=== PATIENT | male | born 1975 | race Caucasian/White ===

== ENCOUNTER 2020-03-13 14:31 | Emergency (ER) | payer MEDICAID, SELFPAY ==
[2020-03-13 14:32] VITALS: PULSE 96; RESP 18; TEMP 37.1; O2SAT 98; BMI 28.7
--- NOTE | 2020-03-13 15:08 | HMH.EDUTC ---
[facility] [place] Disposition Clinical Impression: Upper respiratory infection Qualifiers: URI type: unspecified URI Qualified Code(s): J06.9 - Acute upper respiratory infection, unspecified Disposition: Home, Self-Care Condition on Discharge: Good Instructions: DI for Viral Upper Respiratory Infection-Child Additional Instructions: Drink plenty of fluids. Take tylenol or ibuprofen for pain or fever. Follow up with your regular doctor. GO TO THE ER FOR ANY WORSENING SYMPTOMS Referrals: Provider,Referral, MD [Primary Care Provider] - Forms: Work/School Release Time of Disposition: 15:10 Medical Decision Making - Medical Records Medical records reviewed: No: I reviewed the patient's medical records. - Doug Inquiry Pt receiving controlled substance: No Vital Signs: 03/13/20 14:32 03/13/20 15:15 Temperature 98.7 F 98.7 F Temperature Source Oral Oral Pulse Rate 96 H Pulse Rate [Radial] 96 H Respiratory Rate 18 18 Blood Pressure 138/70 Blood Pressure Source Automatic Cuff Blood Pressure Position Sitting 02 Sat by Pulse Oximetry 98 Oxygen Delivery Method Room Air Room Air Orders (Tests/Meds): ORDERS Category Date Time Status SARS-CoV-2, GISSELLE Stat Lab 03/13/20 14:47 Ordered [facility] [place] HPI - General Stated complaint: needs Covid19 test Time Seen by Provider: 03/13/20 14:40 Mode of Arrival: Ambulatory Source of Information: Patient Limitations: No Limitations Description of Symptoms (Recalled from Triage Doc. by RN): States that his employers wants him tested for COVID-19 in order for him to return to work. HEENT Symptoms (Recalled from RN notes): No Resp Symptoms (Recalled from RN notes): No Skin Symptoms (Recalled from RN notes): No MS Symptoms (Recalled from RN notes): No Functional Status (Recalled from RN notes): wnl - History of Present Illness Provider Complaint: He states the he was sick with a cold last week, so he missed work. Now, he is better. - Related Data Previous Rx's Medication Instructions Recorded clindamycin HCL [Clindamycin HCl 300 mg PO Q6 10 Days #40 cap 06/28/19 300mg Cap] Allergies Allergy/AdvReac Type Severity Reaction Status Date / Time levofloxacin [From LEVAQUIN] Allergy Mild Verified 03/13/19 17:16 Penicillins [PENICILLINS] Allergy Mild Verified 03/13/19 17:16 - Worker's Comp Is this a Worker's Comp case?: No [facility] History - Hepatitis A Screen Drug use history?: No High risk sexual behaviors?: No History of sexually transmitted infection?: No Currently employed?: No Childcare worker?: No Do you have indoor plumbing?: Yes Do you have electricity?: Yes Attestation statement:: This patient has been screened for Hepatitis A risk factors. I have reviewed the patient's past medical history: Yes - Social History Educational Level: Completed High School Smoking Status: Current every day smoker Tobacco Type: cigarettes # Packs/Day (cigarettes): 1 Alcohol Intake: never Occupational Status: employed ROS Obtained: Yes All systems reviewed & no additional complaints - Constitutional Constitutional: Denies chills, Denies fever(s), Reports poor appetite, Denies malaise - Eyes Eyes: Denies eye discharge - ENT Ears, Nose, Mouth, and Throat: Denies dizziness, Denies otalgia, Reports sore throat - Cardiovascular Cardiovascular: Denies chest pain - Respiratory Respiratory: No chest congestion, No cough, No dyspnea, No coughing up blood, No stridor, No wheezing Physical Exam - General General appearance: alert, in no apparent distress - Head Head exam: atraumatic, normocephalic, normal inspection - Eye Eye exam: Present: normal appearance, PERRL, EOMI - ENT ENT exam: Present: normal exam, normal oropharynx, mucous membranes moist, TM's normal bilaterally, normal external ear exam - Neck Neck exam: Present: normal inspection, full ROM, trachea midline. Absent: meningismus, lymphadenopathy - Chest Chest inspect
[2020-03-13 15:15] VITALS: BP 138/70; PULSE 96; RESP 18; TEMP 37.1; O2SAT 98
[2020-03-15 14:38] LABS: Covid-19 Nasal PCR Sendout Lex NOT DETECTED
--- NOTE | 2020-03-15 15:04 | PC.NURSE ---
1504 pt notified of negative covid-19 test result
== END 2020-03-13 15:16 | disposition home or self-care (01) ==
PROVIDERS: Emergency Provider Nurse Practitioner Family
DX: J06.9 Acute upper respiratory infection, unspecified (principal); F17.210 Nicotine dependence, cigarettes, uncomplicated; Z88.0 Allergy status to penicillin
CPT/HCPCS: 99201; U0004

== ENCOUNTER → 2021-11-21 15:20 | Outpatient (CLI) | payer OTHER, SELFPAY | PROVIDERS: Visit Provider Nurse Practitioner | DX: U07.1 COVID-19 (principal) | CPT/HCPCS: C9803; U0003; U0005 ==

== ENCOUNTER → 2021-11-27 11:56 | Outpatient (CLI) | payer OTHER, SELFPAY ==
[2021-11-28 11:16] LABS: Covid-19 Nasal PCR Sendout Lex NOT DETECTED
== END ==
PROVIDERS: Visit Provider Nurse Practitioner
DX: Z20.822 Contact with and (suspected) exposure to COVID-19 (principal)
CPT/HCPCS: C9803; U0004; U0005

== ENCOUNTER 2021-12-17 12:39 | Emergency (ER) | payer OTHER, SELFPAY ==
--- NOTE | 2021-12-17 12:50 | HMH.EDUTC ---
[facility] [place] Clinical Impression: Viral syndrome, Exposure to COVID-19 virus, Bronchitis Disposition: Home, Self-Care Condition on Discharge: Good Instructions: DI for COVID-19 (Suspected or Confirmed ), Preventing the Spread of Coronavirus Discharge Instructions Additional Instructions: Drink plenty of fluids. Take tylenol or ibuprofen for pain or fever. Take the medications as directed. Follow up with your regular doctor. GO TO THE ER FOR ANY WORSENING SYMPTOMS Quarantine until you know the results of your covid-19 test. Notify your school or workplace of your results and follow their instructions regarding return to work/school. Prescriptions: Albuterol Sulfate [Albuterol Sulfate Hfa] 2 puffs IH Q6HP PRN 30 Days #1 each PRN Reason: Shortness Of Breath Transmission Status: Pending to [facility] methylPREDNISolone [Medrol] 4 mg PO DIRECTED 6 Days #21 packet Transmission Status: Pending to [facility] guaiFENesin [Mucinex 600mg tablet] 1 - 2 tab PO BIDP PRN #30 tab PRN Reason: Congestion Transmission Status: Pending to [facility] Azithromycin [Z-Andrew 250mg Tab*] 250 mg PO UD DOSE PK #6 tab Transmission Status: Pending to [facility] Referrals: Provider,Referral, MD [Primary Care Provider] - Forms: Work/School Release Time of Disposition: 14:27 Medical Decision Making - Medical Records Medical records reviewed: No: I reviewed the patient's medical records. - Doug Inquiry Pt receiving controlled substance: No Vital Signs: 12/17/21 12:55 Temperature 97.7 F Temperature Source Temporal Artery Scan Pulse Rate [Left] 112 H Respiratory Rate 18 Blood Pressure [Right Arm] 196/103 H Blood Pressure Mean [Right Arm] 134 02 Sat by Pulse Oximetry 94 L - Lab Data Lab results reviewed: Yes: I reviewed the patient's lab results. Lab Results 12/17/21 14:03: Influenza Type A Ag Negative, Influenza Type B Ag Negative Orders (Tests/Meds): ORDERS Category Date Time Status Rapid Strep Scrn Group A [Strep Scrn Group A (Rapid)] Lab 12/17/21 14:04 Received Stat - Radiology Data #1 Image(s): Chest Image Reviewed: Yes I reviewed the patient's radiology image, Yes I have reviewed radiologist's interpretation [facility] [place]PI - General Stated complaint: cough, soa Time Seen by Provider: 12/17/21 12:50 - History of Present Illness Provider Complaint: He states that for the past 2 days he has felt progressively worse. He is having body aches, chills, low grade fever, diarrhea, a nonproductive cough, chest tightness with deep breathing, scratchy throat. His mother currently has covid-19 and he was around his mother a lot before she started having symptoms. He has not been vaccinated against covid-19. - Related Data Previous Rx's Medication Instructions Recorded clindamycin HCL [Clindamycin HCl 300 mg PO Q6 10 Days #40 cap 06/28/19 300mg Cap] Albuterol Sulfate [Albuterol 2 puffs IH Q6HP PRN 30 Days #1 each 12/17/21 Sulfate Hfa] Azithromycin [Z-Andrew 250mg Tab*] 250 mg PO UD DOSE PK #6 tab 12/17/21 guaiFENesin [Mucinex 600mg tablet] 1 - 2 tab PO BIDP PRN #30 tab 12/17/21 methylPREDNISolone [Medrol] 4 mg PO DIRECTED 6 Days #21 12/17/21 packet Allergies Allergy/AdvReac Type Severity Reaction Status Date / Time levofloxacin [From LEVAQUIN] Allergy Mild Verified 03/13/19 17:16 Penicillins [PENICILLINS] Allergy Mild Verified 03/13/19 17:16 [facility] History - Hepatitis A Screen Attestation statement:: This patient has been screened for Hepatitis A risk factors. I have reviewed the patient's past medical history: Yes - Social History Smoking Status: Current every day smoker Tobacco Type: cigarettes # Packs/Day (cigarettes): 1 Alcohol Intake: never Occupational Status: employed ROS Obtained: Yes All systems reviewed & no additional complaints - Constitutional Constitutional: Reports as per HPI - Eyes Eyes:
[2021-12-17 12:55] VITALS: BP 196/103; PULSE 112; RESP 18; TEMP 36.5; O2SAT 94; BMI 39.1
--- NOTE | 2021-12-17 12:56 | XR_ITS ---
FINAL REPORT CLINICAL HISTORY: sob, cough, wheezing, smoker, hx covid 3 weeks ago COMPARISON: No prior available for comparison. FINDINGS: TWO VIEWS OF THE CHEST The heart is normal in size. The mediastinum is unremarkable. There is mild bibasilar atelectasis or scar. There is no pneumothorax. IMPRESSION: Mild bibasilar atelectasis or scar. Reviewed, Interpreted and Dictated by Tom Mccoy III, MD Transcribed by Edyta Montero Authenticated by Tom Mccoy III, MD on 12/17/2021 02:06:10 PM [facility]
[2021-12-17 14:15] LABS: UTC Influenza A Antigen Negative (Negative)
[2021-12-17 14:16] LABS: UTC Influenza B Antigen Negative (Negative)
[2021-12-17 14:34] VITALS: BP 187/99; PULSE 111; RESP 20; TEMP 36.6
[2021-12-17 14:40] LABS: Strep Scrn Group A (Rapid) Negative (Negative)
== END 2021-12-17 14:35 | disposition home or self-care (01) ==
PROVIDERS: Emergency Provider Nurse Practitioner Family
DX: B34.9 Viral infection, unspecified (principal); Z20.822 Contact with and (suspected) exposure to COVID-19; J40 Bronchitis, not specified as acute or chronic; F17.210 Nicotine dependence, cigarettes, uncomplicated
CPT/HCPCS: 71046; 87430; 87804; 99203; G0463

== ENCOUNTER 2022-03-03 15:36 | Emergency (ER) | payer OTHER, SELFPAY ==
--- NOTE | 2022-03-03 15:54 | XR_ITS ---
FINAL REPORT CLINICAL HISTORY: pain left side of ribs under arm FINDINGS: LEFT RIBS 4 views of the left ribs show a left 6th posterolateral rib fracture There is no pneumothorax or pleural fluid collection. The frontal chest radiograph demonstrates mild left lung base atelectasis or scarring. IMPRESSION: Left 6th posterolateral rib fracture. No pneumothorax. Mild left lung base atelectasis or scarring. Reviewed, Interpreted and Dictated by Tom Mccoy III, MD Transcribed by Jane Arredondo Authenticated by Tom Mccoy III, MD on 03/03/2022 04:47:00 PM [facility]
[2022-03-03 16:16] VITALS: BP 161/94; PULSE 104; RESP 19; TEMP 37.1; O2SAT 96; BMI 39.9
--- NOTE | 2022-03-03 16:30 | HMH.EDUTC ---
[facility] [place] Disposition Clinical Impression: Rib fracture Qualifiers: Encounter type: initial encounter Rib fracture type: single rib Fracture type: closed Laterality: left Qualified Code(s): S22.32XA - Fracture of one rib, left side, initial encounter for closed fracture Disposition: Home, Self-Care Condition on Discharge: Good Instructions: Rib Fracture, DI for Rib Fracture Additional Instructions: Take tylenol or ibuprofen for pain or fever. Take the medications as directed. Follow up with your regular doctor. GO TO THE ER FOR ANY WORSENING SYMPTOMS Use the incentive spirometer 10 times every 2 hours for the next 2 weeks. The cough medication (promethazine dm) will make you drowsy, so don't drive or operate heavy machinery after taking it. Prescriptions: Promethazine/Dextromethorphan [Promethazine-Dm Syrup] 5 ml PO Q6HP PRN #240 ml PRN Reason: Cough Transmission Status: Received by [facility] Benzonatate [Benzonatate 100mg cap] 100 mg PO TIDP PRN #30 cap PRN Reason: Cough Transmission Status: Received by [facility] methylPREDNISolone [Medrol] 4 mg PO DIRECTED 6 Days #21 packet Transmission Status: Received by [facility] Azithromycin [Z-Andrew 250mg Tab*] 250 mg PO UD DOSE PK #6 tab Transmission Status: Received by [facility] Referrals: Provider,Referral, [Primary Care Provider] - Forms: Work/School Release Time of Disposition: 17:24 Medical Decision Making - Medical Records Medical records reviewed: No: I reviewed the patient's medical records. - Doug Inquiry Pt receiving controlled substance: No Vital Signs: 03/03/22 16:16 03/03/22 17:30 Temperature 98.7 F 98.7 F Temperature Source Oral Pulse Rate 104 H Pulse Rate [Left] 104 H Respiratory Rate 19 19 Blood Pressure 161/94 H Blood Pressure [Right Arm] 161/94 H Blood Pressure Mean [Right Arm] 116 02 Sat by Pulse Oximetry 96 - Radiology Data #1 Image(s): Chest Image Reviewed: Yes I reviewed the patient's radiology image, Yes I have reviewed radiologist's interpretation Preliminary Findings: Abnormal Take the ibuprofen for pain. Take the medications as directed. Follow up with your regular doctor. GO TO THE ER FOR ANY WORSENING SYMPTOMS Use the incentive spirometer 10 times every 2 hours while you are awake for the next 2 weeks. The cough medication (promethazine dm) will make you drowsy, so don't drive or operate heavy machinery after taking it. [facility] [place] HPI - General Stated complaint: SOB, pain in rib cage Time Seen by Provider: 03/03/22 16:30 Mode of Arrival: Ambulatory Source of Information: Patient Limitations: No Limitations Description of Symptoms (Recalled from Triage Doc. by RN): pt c/o left sided rib pain. states that he can not remember hitting it or running into anything. 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 HEENT Symptoms (Recalled from RN notes): No Resp Symptoms (Recalled from RN notes): No Skin Symptoms (Recalled from RN notes): No MS Symptoms (Recalled from RN notes): Yes Functional Status (Recalled from RN notes): wnl - History of Present Illness Provider Complaint: He states that around 1 week ago he began having left rib pain with deep breathing and coughing. He denies any fall or known injury. He denies any shortness of breath. - Related Data Previous Rx's Medication Instructions Recorded clindamycin HCL [Clindamycin HCl 300 mg PO Q6 10 Days #40 cap 06/28/19 300mg Cap] Albuterol Sulfate [Albuterol 2 puffs IH Q6HP PRN 30 Days #1 each 12/17/21 Sulfate Hfa] Azithromycin [Z-Andrew 250mg Tab*] 250 mg PO UD DOSE PK #6 tab 12/17/21 guaiFENesin [Mucinex 600mg tablet] 1 - 2 tab PO BIDP PRN #30 tab 12/17/21 methylPREDNISolone [Medrol] 4 mg PO DIRECTED 6 Days #21 12/17/21 packet Azithromycin [Z-Andrew 250mg Tab*] 250 mg PO UD DOSE PK #6 tab 03/03/22 Benzonatate [Benzonatate 100mg 100 mg PO T
[2022-03-03 17:30] VITALS: BP 161/94; PULSE 104; RESP 19; TEMP 37.1; O2SAT 96
== END 2022-03-03 17:31 | disposition home or self-care (01) ==
PROVIDERS: Emergency Provider Nurse Practitioner Family
DX: S22.32XA Fracture of one rib, left side, initial encounter for closed fracture (principal); Z79.51 Long term (current) use of inhaled steroids; Z79.52 Long term (current) use of systemic steroids; Z79.899 Other long term (current) drug therapy; Z88.0 Allergy status to penicillin; Z88.8 Allergy status to other drugs, medicaments and biological substances
CPT/HCPCS: 71101; 99213; G0463

== ENCOUNTER → 2022-09-03 11:28 | Outpatient (CLI) | payer OTHER, SELFPAY ==
--- NOTE | 2022-09-03 11:32 | XR_ITS ---
FINAL REPORT CLINICAL HISTORY: L FOOT PAIN FINDINGS: LEFT FOOT Three views of the left foot demonstrate no acute fracture or dislocation. There is mild hallux valgus deformity. There are mild degenerative changes of the 1st MTP joint. The soft tissues are unremarkable. IMPRESSION: Mild hallux valgus deformity. Mild degenerative changes of the 1st MTP joint. No acute bony abnormality. Reviewed, Interpreted and Dictated by Tom Mccoy III, MD Transcribed by Jane Arredondo Authenticated and [facility]
== END ==
PROVIDERS: PCP Nurse Practitioner Family; Visit Provider Nurse Practitioner Family
DX: M79.672 Pain in left foot (principal)
CPT/HCPCS: 73630

== ENCOUNTER 2023-12-10 21:47 | Outpatient (CLI) | payer OTHER, SELFPAY ==
[2023-12-10 18:47] LABS: Basophils # 0.1 K/mm3 (0-0.2); Basophils % 0.4 % (0.1-2.0); Eosinophils # 0.2 K/mm3 (0.0-0.4); Eosinophils % 1.2 % (0.1-12.0); Hematocrit 54.5 % (42.0-52.0); Hemoglobin 17.8 g/dL (14.1-18.0); Lymphocytes # 4.3 K/mm3 (0.7-4.5); Lymphocytes % 36.1 % (10-50); Mean Corpuscular HGB Conc 32.6 g/dL (31.8-35.4); Mean Corpuscular Hemoglobin 30.4 pg (27.0-31.2); Mean Corpuscular Volume 93.3 fl (80-94); Mean Platelet Volume 9.2 fl (7.4-10.4); Monocytes # 0.6 K/mm3 (0.1-1.0); Monocytes % 5.1 % (1.7-9.3); Neutrophils # 6.9 K/mm3 (1.8-7.8); Neutrophils % 57.2 % (37.0-80.0); Platelet Count 257 K/mm3 (142-424); Red Blood Count 5.84 M/mm3 (4.60-6.20); Red Cell Distribution Width 13.4 % (11.5-17.5)
[2023-12-10 19:31] LABS: Alanine Aminotransferase 31 U/L (12-78); Albumin/Globulin Ratio 1.7 (1.1-1.8); Alkaline Phosphatase 82 U/L (38-126); Anion Gap 14.1 mEq/L (5-15); Aspartate Amino Transferase 32 U/L (17-59); Bilirubin,Total 0.5 mg/dl (0.2-1.3); Blood Urea Nitrogen 5 mg/dl (9-20); Calcium 10.1 mg/dl (8.4-10.2); Carbon Dioxide 29 mmol/L (22.0-30.0); Chloride 101 mmol/L (98-107); Chol/HDL Ratio 5.9 (1-3.5); Cholesterol 266 mg/dl (140-200); Estimated Glomerular Filt Rate 177 ml/min (>60); GFR (African American) 214 ML/MIN (>60); Glucose 107 mg/dl (74-100); HDL Cholesterol 45 mg/dl (40-60); Potassium 4.1 mmoL/L (3.5-5.1); Sodium 140 mmol/L (136-145); Triglycerides 210 mg/dl (30-150); VLDL Cholesterol 42 mg/dL (0-40)
[2023-12-10 19:42] LABS: Direct LDL Cholesterol 164.33 mg/dL (100-129)
[2023-12-10 19:44] LABS: Hemoglobin A1C 7.6 % (4.0-6.0)
[2023-12-10 20:02] LABS: Prostate Specific Ag Screen 0.2 ng/ml (0.0-4.0); Thyroid Stimulating Hormone 1.88 uIU/mL (0.465-4.68)
== END 2023-12-10 23:59 ==
LOC: LAB.DROPOF 21:47
PROVIDERS: PCP Family Medicine; Visit Provider Family Medicine
DX: R53.83 Other fatigue (principal); I10 Essential (primary) hypertension; R51.9 Headache, unspecified; R00.0 Tachycardia, unspecified; E11.9 Type 2 diabetes mellitus without complications; E78.5 Hyperlipidemia, unspecified; Z79.84 Long term (current) use of oral hypoglycemic drugs; Z79.899 Other long term (current) drug therapy; F17.210 Nicotine dependence, cigarettes, uncomplicated; Z12.5 Encounter for screening for malignant neoplasm of prostate
CPT/HCPCS: 80053; 80061; 83036; 84443; 85025; G0103

== ENCOUNTER 2023-12-17 07:49 | Outpatient (CLI) | payer OTHER, SELFPAY | END 2023-12-17 23:59 | LOC: RT 07:50 | PROVIDERS: PCP Family Medicine; Visit Provider Family Medicine | DX: I10 Essential (primary) hypertension (principal); F17.210 Nicotine dependence, cigarettes, uncomplicated | CPT/HCPCS: 93976 ==

== ENCOUNTER 2025-08-13 14:11 | Inpatient (IN) | payer OTHER, SELFPAY ==
--- OUTSIDE RECORDS SUMMARY | 2024-12-21 11:00 | XMS_ITS ---
Author Organization [facility] Address [address] [place], [place] [address] Care Team Providers Care Documentation Nurse Name Role Phone Sofia Sandy Primary Care Provider [phone] SOFIA Sandy APRN Unavailable Unavailable REASON FOR VISIT BP has been high Encounters Encounter Location Date Provider Diagnosis [facility] [address] [place], [place] [address] 12/21/2024 Sofia Sandy Plan Of Treatment No Information Progress Notes * Leroy FERGUSON CDOB: [birth year] (50 yo M)Acc No.[id number]:12/21/2024 Progress Notes Patient: Guille ANDERS Leroy Mckeon Provider: Guille Sandy APRN :1975 A ge:49 Y S ex:Male Date:12/21/2024 Address:[address] [place], [id number] Subjective: * Chief Complaints: * 1 . BP has been high. * Medical History: Objective: * Vitals: Assessment: Plan: * Treatment: * * Electronic signature of Bridgette Sandy APRN on 08/13/2025 at 02:34 PM EDT Sign off status: Pending * Provider: Guille Sandy APRN Date: 0 12/21/2024 Generated for Printi ng/Faxing/eTransmitting on: 1 02:34 PM EDT
--- OUTSIDE RECORDS SUMMARY | 2025-01-02 10:00 | XMS_ITS ---
Author Organization [facility] Address [address] [place], [place] [address] Care Team Providers Care Director Of Professional Services Name Role Phone Sofia Sandy Primary Care Provider [phone] SOFIA Sandy APRN Unavailable Unavailable REASON FOR VISIT BP has been high Encounters Encounter Location Date Provider Diagnosis [facility] [address] [place], [place] [address] 01/02/2025 Sofia Sandy Plan Of Treatment No Information Progress Notes * Leroy FERGUSON CDOB: [birth year] (50 yo M)Acc No.[id number]:01/02/2025 Progress Notes Patient: Guille ANDERS Leroy Mckeon Provider: Guille Sandy APRN :1975 A ge:49 Y S ex:Male Date:01/02/2025 Address:[address] [place], [id number] Subjective: * Chief Complaints: * 1 . BP has been high. * Medical History: Objective: * Vitals: Assessment: Plan: * Treatment: * * Electronic signature of Bridgette Sandy APRN on 08/13/2025 at 02:34 PM EDT Sign off status: Pending * Provider: Guille Sandy APRN Date: 0 01/02/2025 Generated for Printi ng/Faxing/eTransmitting on: 1 02:34 PM EDT
--- OUTSIDE RECORDS SUMMARY | 2025-02-03 17:30 | XMS_ITS ---
Author Organization [facility] Address [address] [place] [address] Care Team Providers Care Instrumentation Fitter Name Role Phone Sofia Sandy Primary Care Provider [phone] SOFIA Sandy APRN Unavailable Unavailable Migration, Provider Unavailable Unavailable Allergies Allergen (clinical drug ingredient) Drug/Non Drug Allergy documented on EMR Reaction Allergy Type Onset Date Status Penicillin Unknown Drug Allergy Active REASON FOR VISIT [facility] Conversion Encounter Medications Medication SIG (Take, Route, Frequency, Duration) Notes Start Date End Date Status Propranolol HCl 40 MG 1 tab(s) orally 2 times a day; Duration: 30 days 04/06/2023 Active amLODIPine Besylate 5 MG 1 tab(s) orally once a day; Duration: 30 days 09/03/2022 Active OZEMPIC 2 MG/3 ML (0.25 MG OR 0.5 MG DOSE) 0.25MG ONCE A WEEK X 4 WEEKS THEN INCREASE TO 0.5MG SUBCUTANEOUSLY ONCE A WEEK; Duration: 28 DAYS *Please review for potential replacement for e-prescription and drug interaction check* 04/22/2023 Active Escitalopram Oxalate 10 MG 1 tab(s) orally once a day; Duration: 30 days 04/22/2023 Active ASPIRIN EC 81 MG 1 TAB(S) ORALLY ONCE A DAY; Duration: 30 DAY(S) *Please review for potential replacement for e-prescription and drug interaction check* 04/06/2023 Active metFORMIN HCl ER 500 MG 1 tab(s) orally twice a day; Duration: 30 day(s) 09/04/2022 Active Encounters Encounter Location Date Provider Diagnosis [facility] [address] [place] [address] 02/03/2025 Provider Migration MAVIS (generalized anxiety disorder) F41.1 and Type 2 diabetes mellitus without complications E11.9 Assessments Encounter Date Diagnosis (ICD Code) Assessment Notes Treatment Notes Treatment Clinical Notes Section Notes 02/03/2025 MAVIS (generalized anxiety disorder) (ICD-10 - F41.1) 02/03/2025 Type 2 diabetes mellitus without complications (ICD-10 - E11.9) Plan Of Treatment Medication Medication Name Sig Start Date Stop Date Notes OZEMPIC 2 MG/3 ML (0.25 MG OR 0.5 MG DOSE) 0.25MG ONCE A WEEK X 4 WEEKS THEN INCREASE TO 0.5MG SUBCUTANEOUSLY ONCE A WEEK; Duration: 28 DAYS 04/22/2023 *Please review for potential replacement for e-prescription and drug interaction check* Escitalopram Oxalate 10 MG 1 tab(s) orally once a day; Duration: 30 days 04/22/2023 Progress Notes * Leroy FERGUSON CDOB: [birth year] (50 yo M)Acc No.[id number]:02/03/2025 Patient: Guille Leroy ANDERS Provider: Javier Logan :1975 A ge:50 Y S ex:Male Date:02/03/2025 Address:[address] [place] [address] [id number] Pcp:Sofia Sandy Subjective: * Chief Complaints: * 1 . [facility] Conversion Encounter. * Medical History: * Medications: T aking metFORMIN HCl ER 500 MG Tablet Extended Release 24 Hour 1 tab(s) orally twice a day , Taking amLODIPine Besylate 5 MG Tablet 1 tab(s) orally once a day , Taking Propranolol HCl 40 MG Tablet 1 tab(s) orally 2 times a day , Taking ASPIRIN EC 81 MG DELAYED RELEASE TABLET 1 TAB(S) ORALLY ONCE A DAY , Notes to Pharmacist: *Please review for potential replacement for e-prescription and drug interaction check* * Allergies: P enicillin: Allergy. Objective: * Vitals: Assessment: * Assessment: 1. G AD (generalized anxiety disorder) - F41.1 2 . T ype 2 diabetes mellitus without complications - E11.9 Plan: * Treatment: 2. T ype 2 diabetes mellitus without complications Start OZEMPIC SOLUTION, 2 MG/3 ML (0.25 MG OR 0.5 MG DOSE), 0.25MG ONCE A WEEK X 4 WEEKS THEN INCREASE TO 0.5MG, SUBCUTANEOUSLY, ONCE A WEEK, 28 DAYS, 4, Refills 0, Notes to Pharmacist: *Please review for potential replacement for e-prescription and drug interaction check*. * * Electronic signature of Fredi caldwell Migration on 08/13/2025 at 02:34 PM EDT Sign off status: Pending * Provider: Javier buenrostro Migration Date: 0 02/03/2025 Generated for Dickson barillas/Jayme/Bay on: 1 02:34 PM EDT
[2025-08-13] VITALS (14 sets, daily range): BP systolic 93–143; BP diastolic 62–82; PULSE 91–132; RESP 10–22; TEMP 36.6–36.9; O2SAT 93–98; BMI 37.5; BMI 35.6
--- NOTE | 2025-08-13 14:25 | ECG_ITS ---
APPROVED REPORT Exam: Resting ECG HR:133 bpm ECG Measurements Heart Rate 133 AXES PA 117 P 43 QRSd 82 QRS 20 QT 311 T 35 QTc 389 Conclusion SINUS TACHYCARDIA WITH SHORT PA INTERVAL LOW QRS VOLTAGE IN PRECORDIAL LEADS [QRS DEFLECTION < 1.0 mV IN CHEST LEADS] ABNORMAL RHYTHM ECG UNCONFIRMED REPORT Electronically signed by : Eren Keenan, 08/13/2025 15:47:21
--- NOTE | 2025-08-13 14:34 | HMH.EDGENADL ---
Discharge Plan Disposition Patient Disposition: Admitted Condition: Critical Prescriptions Prescriptions: No Action buprenorphine-naloxone 8-2 mg tablet, sublingual sublingual aspirin [Adult Low Dose Aspirin] 81 mg tablet,delayed release (DR/EC) 81 mg PO DAILY losartan-hydrochlorothiazide 50-12.5 mg tablet 1 tab PO DAILY Qty: 30 2RF atorvastatin [Lipitor] 20 mg tablet 20 mg PO DAILY Qty: 90 2RF Ozempic 0.25 mg or 0.5 mg (2 mg/3 mL) pen injector 0.25 mg SQ WEEKLY Qty: 3 0RF Rx Instructions: for 4 weeks metformin 500 mg tablet See Rx Instructions .ROUTE .COMPLEX Qty: 180 3RF Dose Instruction: TAKE ONE TABLET BY MOUTH 2 TIMES A DAY Rx Instructions: TAKE ONE TABLET BY MOUTH 2 TIMES A DAY alprazolam 1 mg tablet 1 mg PO BID PRN (Reason: anxiety) Qty: 60 0RF Referrals Follow up/Referrals: Addison Thomas DO [Primary Care Provider, Family Practice] - See instructions Clinical Impressions Clinical Impression: Hyperosmolar hyperglycemic state (HHS), Pseudohyponatremia, Weakness, Dehydration Print Language Print Language: Kosovan Discharge ED Provider: Eren Keenan Adult HPI General Chief complaint: Weakness Stated complaint: cant eat, unsteady, blurry vision, slurred speech Time Seen by Provider: 08/13/25 14:34 Mode of Arrival: Ambulatory Source of Information: Patient Description of Symptoms (Recalled from ER Triage Doc. by RN): patient presents to the ED for generalized weakness that started 3 days ago and has progressively gotten worse along with slurred speech and blurry vision. patient presents in a wheelchair due to weakness and he states this is not his baseline. NIH 0 in triage. patient also endorses not eating in the last 3 days as well. [place] is diabetic and takes aspirin daily. History of Present Illness HPI narrative: Patient is a 50-year-old male with history of diabetes, on metformin, hypertension hyperlipidemia, opiate use disorder in remission. He is presenting today for generalized weakness as well as not able to tolerate oral intake. He reports he has been nauseous for the last 3 days and has not hardly had anything to eat or drink. He reports some headaches as well as generalized weakness. He has dropped items both in his right and left hand and has been not able to stand for long periods of time. He denies any headaches, chest pain, shortness of breath, abdominal pain, diarrhea. Denies any falls or trauma. He has never been on insulin. Denies any fevers or sick contacts. Denies any cough congestion runny nose. Related Data Home Medications ?Medication ?Instructions ?Recorded ?Confirmed buprenorphine 8 mg-naloxone 2 mg tab sublingual 12/10/23 08/01/25 sublingual tablet aspirin 81 mg tablet,delayed 81 mg PO DAILY 12/11/23 08/01/25 release (Adult Low Dose Aspirin) Previous Rx's ?Medication ?Instructions ?Recorded atorvastatin 20 mg tablet (Lipitor) 20 mg PO DAILY #90 tabs 06/28/25 losartan 50 mg-hydrochlorothiazide 1 tab PO DAILY #30 tabs 06/28/25 12.5 mg tablet semaglutide 0.25 mg or 0.5 mg (2 0.25 mg (0.368 mL) SQ WEEKLY #3 mL 06/28/25 mg/3 mL) subcutaneous pen injector (Ozempic) metformin 500 mg tablet See Rx Instructions .Route 07/24/25 .COMPLEX #180 tabs alprazolam 1 mg tablet 1 mg PO BID PRN anxiety #60 tabs 08/07/25 Allergies Allergy/AdvReac Type Severity Reaction Status Date / Time Penicillins (PENICILLINS) Allergy Mild Unknown Verified 08/01/25 10:54 allergy reaction levofloxacin (From LEVAQUIN) Allergy Unknown Unknown Verified 08/01/25 10:54 allergy reaction [facility] Disclaimer: The information contained in this section may have been updated after the patient was seen, as this information can be updated by other users. Medical History Diabetes Rib fracture Bronchitis Exposure to COVID-19 virus Viral syndrome Upper respiratory infection Dental abscess Periapical abscess Other acute sinusitis Surgical History Hx of plastic surgery left arm History of appendectomy ruptured and got gangrene younger No pertinent past surgical history Family History Family/Other No significant family history Social History Smoking Status: Current every day smoker tobacco type: cigarettes packs per day: 1 second hand exposure: Yes alcohol intake: current alcohol intake frequency: holidays/special occasions only substance use type: former substance user and painkillers current occupational status: unemployed Travel in the last 8 weeks?: None Have you lived/traveled outside US in past 30 days?: No Contact w/someone who lives/traveled outside US past 30 days?: No Exposure to someone with infectious disease in past 14 days?: No Do you have a fever (greater than 100.4 F or 38 C)?: No Have you tested positive for COVID-19?: No Exposed to someone with COVID-19 in past 14 days?: No Do you have a sore throat?: No Do you have a cough?: No Do you have any weakness?: No Do you have any diarrhea?: No Are you experiencing any unusual bleeding?: No Do you have any muscle aches/pain?: No Do you have any abdominal pain?: No Are you experiencing loss of taste or smell?: No Other Medical History Have you received the Flu Vaccine for this season: No Have you received the Pneumonia Vaccine: No ROS Obtained: Yes All systems reviewed & no additional complaints except as documented Physical Exam General General appearance: alert and in no apparent distress Head Head exam: atraumatic and normocephalic Eye Eye exam: Present PERRL and EOMI ENT ENT exam: Present mucous membranes dry Neck Neck exam: Present full ROM and trachea midline Chest Chest inspection: Present symmetric chest wall rise Respiratory Respiratory exam: Present normal lung sounds bilaterally; Absent stridor Cardiovascular Cardiovascular exam: Present normal rhythm and tachycardia Abdominal Exam Abdominal exam: Present soft; Absent distention or tenderness Extremities Exam Extremities exam: Present full ROM Neurological Exam Neurological exam: Present alert, oriented X3 and CN II-XII intact; Absent motor sensory deficit Psychiatric Psychiatric exam: Present normal mood Skin Skin exam: Present warm and dry Medical Decision Making Medical Records Screening: Per USPSTF and CDC recommendations, given the prevalence of disease in our region, it is our hospital?s policy to screen for HIV and viral Hepatitis for all patients aged 18 and over and those with ongoing risk factors. Doug Inquiry Pt receiving controlled substance: No Vital Signs: 08/13/25 14:19 08/13/25 14:46 Temperature 98.5 F Temperature Source Oral Pulse Rate 117 H Pulse Rate [Right Radial] 132 H Respiratory Rate 18 15 Blood Pressure 117/71 Blood Pressure [Right Arm] 143/82 H Blood Pressure Mean [Right Arm] 102 Blood Pressure Source [Right Arm] Automatic Cuff Blood Pressure Position [Right Arm] Sitting 02 Sat by Pulse Oximetry 96 94 L Oxygen Delivery Method Room Air Lab Data Lab Results 08/13/25 14:36: WBC 16.9 H, RBC 5.09, Hgb 14.9, Hct 44.5, MCV 87.4, MCH 29.3, MCHC 33.5, RDW 13.0, Plt Count 292, MPV 12.1 H, Neut % (Auto) 68.0, Lymph % (Auto) 25.8, [place] % (Auto) 5.0, Eos % (Auto) 0.4, Baso % (Auto) 0.4, Neut # (Auto) 11.5 H, Lymph # (Auto) 4.4, [place] # (Auto) 0.9, Eos # (Auto) 0.1, Baso # (Auto) 0.1, VBG pH 7.30 L, VBG pCO2 31.1 L, VBG pO2 89.6 H, VBG HCO3 15.0 L, VBG Total CO2 15.9 L, VBG O2 Saturation 97.0 H, VBG Base Excess -11.4 L, VBG Lactic Acid 3.6 H, Sodium 129 L, Potassium 4.4, Chloride 82 L, Carbon Dioxide 15 L, Anion Gap 36.4 H, BUN 31 H, Creatinine 1.20, Estimated Creat Clear 112, Estimated GFR 64, Est GFR ( Amer) 77, Glucose 829 H*, Calcium 9.1, Phosphorus 6.6 H, Magnesium 2.8 H, Total Bilirubin 0.7, AST 25, ALT 25, Alkaline Phosphatase 145 H, Total Protein 8.7 H, Albumin 4.9, Globulin 3.8 H, Albumin/Globulin Ratio 1.3, Lipase 307 H 08/13/25 14:36 08/13/25 14:36 Orders (Tests/Meds): ED MEDICATIONS Generic Name Dose Route Start Last Admin Trade Name Freq PRN Reason Stop Dose Admin Dextrose 50 ml 08/13/25 15:08 Dextrose 50% 50ml Syringe (Crash Cart) IVP 09/12/25 15:07 NEEDED PRN Per Dka Protocol for FSBS </= 50 Sodium Chloride 1,000 mls @ 999 mls/hr 08/13/25 14:35 08/13/25 14:49 Sod Chlor 0.9% 1000ml Bag IV 08/13/25 15:35 999 mls/hr .Q1H1M ONE Administration Sodium Chloride 1,000 mls @ 999 mls/hr 08/13/25 14:57 08/13/25 15:12 Sod Chlor 0.9% 1000ml Bag IV 08/13/25 15:57 999 mls/hr .Q1H1M ONE Administration Sodium Chloride 1,000 mls @ 150 mls/hr 08/13/25 17:15 Sod Chlor 0.9% 1000ml Bag IV 09/12/25 17:14 .Q6H40M GABY Insulin Human Regular 100 unit 101 mls @ 10.1 mls/hr 08/13/25 15:15 / Sodium Chloride IV 09/12/25 15:14 .Q10H GABY Protocol 10 UNIT/HR Discontinued Medications Generic Name Dose Route Start Last Admin Trade Name Freq PRN Reason Stop Dose Admin Ondansetron HCl 4 mg 08/13/25 14:35 08/13/25 14:49 Ondansetron 4mg/2ml Vial IV 08/13/25 14:36 4 mg ONCE ONE Administration ORDERS Category Date Time Status CT head/brain wo con Stat Cat Scan 08/13/25 14:56 Taken Acetone, Serum (Rapid) Stat Lab 08/13/25 14:36 Results Basic Metabolic Panel Q4 Lab 08/13/25 15:15 Ordered Basic Metabolic Panel Q4 Lab 08/13/25 19:15 Ordered Basic Metabolic Panel Q4 Lab 08/13/25 23:15 Ordered Basic Metabolic Panel Q4H Lab 08/14/25 03:15 Ordered Basic Metabolic Panel Q4H Lab 08/14/25 07:15 Ordered Basic Metabolic Panel Q4H Lab 08/14/25 11:15 Ordered CBC w/Auto Diff [Complete Blood Count Auto Diff] Stat Lab 08/13/25 14:36 Completed CMP [Comprehensive Metabolic Panel] Stat Lab 08/13/25 14:36 Results Drug Screen,Urine Stat Lab 08/13/25 14:35 Ordered Hemoglobin A1C Stat Lab 08/13/25 14:36 Received Lactic Acid Stat Lab 08/13/25 14:35 Ordered Lipase Stat Lab 08/13/25 14:36 Results MAG [Magnesium] Stat Lab 08/13/25 14:36 Results Magnesium Q4H Lab 08/13/25 15:15 Ordered Magnesium Q4H Lab 08/13/25 19:15 Ordered Magnesium Q4H Lab 08/13/25 23:15 Ordered Magnesium Q4H Lab 08/14/25 03:15 Ordered Magnesium Q4H Lab 08/14/25 07:15 Ordered Magnesium Q4H Lab 08/14/25 11:15 Ordered PHOS [Phosphorous] Stat Lab 08/13/25 14:36 Results Phosphorous Q4H Lab 08/13/25 15:15 Ordered Phosphorous Q4H Lab 08/13/25 19:15 Ordered Phosphorous Q4H Lab 08/13/25 23:15 Ordered Phosphorous Q4H Lab 08/14/25 03:15 Ordered Phosphorous Q4H Lab 08/14/25 07:15 Ordered Phosphorous Q4H Lab 08/14/25 11:15 Ordered Rapid PCR Covid and Flu A/B Stat Lab 08/13/25 14:55 Received UA [Urinalysis and Microscopic] Stat Lab 08/13/25 14:35 Ordered Blood Culture Stat Micro 08/13/25 15:26 Ordered Venous Blood Gas Stat RT 08/13/25 14:36 Completed ECG Data Tracing #1: Independently diverted by myself demonstrate sinus tachycardia with a short NV interval at 117, but likely secondary to his tachycardia, not acutely actionable. No obvious acute ischemic ST change. Medical Decision Narrative: Patient is a 50-year-old male with history of diabetes, likely poorly controlled. Presenting today for generalized weakness, nausea, unable to tolerate oral intake for 3 days. On arrival, he is critically ill. He is tachycardic to 133, but otherwise stable. On exam, is extremely dry, with greater than 3-second capillary refill. Full pulses in all extremities. No lower extremity edema. Heart is tachycardic rate with regular rhythm lung sounds are clear. No respiratory distress noted. Oropharynx is clear, but very dry mucous membranes. Pupils are equal and reactive, cranial nerves grossly intact, gross motor and sensory in upper and lower extremities are intact. Good ultrasonic solderer strength bilaterally. Regarding his weakness, I find it likely secondary to his metabolic disturbances HHS versus DKA, nevertheless, will proceed with cross-sectional to the head rule out ICH or cerebral edema. Patient likely has DKA versus HHS given significant hyperglycemia greater than detectable on both VBG and glucometers here. Will send with broad hematologic lab workup. VBG returned acidotic 7.3. Glucose is 829. Likely pseudo hyponatremia with blood glucose of 129. Anion gap of 36 and bicarb of 15. will continue aggressive crystalloid resuscitation and begin insulin drip per protocol. [place] reasonable to consult hospitalist. Had an interactive discussion with Dr. Adam who ultimately agrees to admit the patient to the service for further workup definitive management. We transferred in mildly tachycardic, but otherwise hemodynamically stable condition. Critical Care Critical Care Time Critical Care Time: Yes Attestation: On 08/13/25, the high probability of a clinically significant, sudden or life threatening deterioration of the following system(s) required my full and direct attention, intervention and personal management. The time I documented below is in addition to time spent performing reported procedures but includes the following listed in this critical care notation. Total Time Total Critical Care Time: 34
--- OUTSIDE RECORDS SUMMARY | 2025-08-13 14:35 | XMS_ITS | Patient Health Record ---
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 Name Role Phone Sofia Sandy Primary Care Provider SOFIA Sandy APRN Unavailable Unavailable Migration, Provider Unavailable Unavailable Allergies Allergen (clinical drug ingredient) Drug/Non Drug Allergy documented on EMR Reaction Allergy Type Onset Date Status Penicillin Unknown Drug Allergy Active Reason For Referral No Information Medications Medication SIG (Take, Route, Frequency, Duration) Notes Start Date End Date Status metFORMIN HCl ER 500 MG 1 tab(s) orally twice a day; Duration: 30 day(s) 09/04/2022 Active Propranolol HCl 40 MG 1 tab(s) orally [...] e-prescription and drug interaction check* 04/06/2023 Active Social History Tobacco Use: Social History Observation Description Date Details (start date - stop date) Current Smoker NA - NA Smoking: Question Answer Notes Are you a: current smoker How often do you smoke cigarettes? every day How many cigarettes a day do you smoke? 21-30 Problems Problem Type SNOMED Code ICD Code Onset Dates Problem Status W/U Status Risk Notes Problem Type II diabetes mellitus without complication (975060361) Type 2 diabetes mellitus without complications (E11.9) Active confirmed Problem Essential hypertension (80020876) Essential hypertension (I10) Active confirmed Problem Generalized anxiety disorder (95515051) MAVIS (generalized anxiety disorder) (F41.1) Active confirmed Problem Body mass index 40+ - severely obese (791556003) Body mass index (BMI) of 40.1 to 44.9 in adult (Z68.41) Active confirmed Problem Tobacco use (447185915) Tobacco use disorder (F17.200) Active confirmed Encounters Encounter Location Date Provider Diagnosis [facility] [address] [place] [address] 02/03/2025 Provider Migration MAVIS (generalized anxiety disorder) F41.1 and Type 2 diabetes mellitus without complications E11.9 [facility] [address] [place] [address] 01/02/2025 Sofia Sandy Assessments Encounter Date Diagnosis (ICD Code) Assessment Notes Treatment Notes Treatment Clinical Notes Section Notes 02/03/2025 MAVIS (generalized anxiety disorder) (ICD-10 - F41.1) 02/03/2025 Type 2 diabetes mellitus without complications (ICD-10 - E11.9) Plan Of Treatment Pending Test Test Name Order Date M-Comprehensive Metabolic Panel 04/22/20 23 M-Hemoglobin A1C 04/22/2023 M-Lipid Panel 04/22/2023 M-PSA Total+% Free 04/22/2023 Insurance Providers Payer Name Payer Address Payer Phone Subscriber Number Group Number Insured Name Patient Relationship to Insured Coverage Start Date Coverage End Date [employer] [facility] [address] [address] [place] [address] [id number] Leroy Ferguson Self - patient is the insured Medical (General) History Medical History History ICD Code Gout Surgical History Surgery Date(Month/Year) appendectomy Left wrist- large laceration Hospitalization History Reason Date(Month/Year) Surgeries as above
--- NOTE | 2025-08-13 14:37 | PC.NURSE ---
I notified Debi that a green top was sent for a VBG
[2025-08-13 14:44] LABS: VBG HCO3 15.0 mmol/L (23-30); VBG PCO2 31.1 mmol/L (35-51); VBG PH 7.30 mmol/L (7.31-7.41); VBG PO2 89.6 mmol/L (28-40)
[2025-08-13 14:47] LABS: Lactate Venous 3.6 mmol/L (0.4-2.0)
[2025-08-13] MEDS: ONDANSETRON 4MG/2ML VIAL 4 MG IV (14:49)
[2025-08-13] MEDS: 0.9 % SODIUM CHLORIDE 1000ML 1,000 ML 999 ML IV ×2 (14:49→15:12)
--- NOTE | 2025-08-13 14:56 | CT_ITS ---
FINAL REPORT TECHNIQUE: Thin section axial images were obtained from skull base to vertex without contrast. Coronal and sagittal reconstruction images were obtained from the axial data. Exam was performed using dose reduction techniques such as automated exposure control, adjustment of the mA and kV according to patient size, and use of iterative reconstruction technique. CLINICAL HISTORY: DKA, weakness, r/o cerebral edema COMPARISON: None FINDINGS: There is no mass effect or midline shift. There is an old left basal ganglia infarct present. Otherwise, no acute intracranial abnormality is noted. There is no hydrocephalus. There is no intracranial hemorrhage. The posterior fossa is without acute abnormality. The basilar cisterns are preserved. The soft tissues are without acute abnormality. No acute osseous abnormality is identified. IMPRESSION: No acute intracranial hemorrhage or large cortical infarct is identified. Remote left basal ganglia infarct. Reviewed, Interpreted and Dictated by Edie Renner MD Transcribed by Marlyn Steward Authenticated and [facility]
[2025-08-13 15:00] LABS: Hematocrit 44.5 % (42.0-52.0); Hemoglobin 14.9 g/dL (14.1-18.0); Immature Granulocytes % 0.4 %; Mean Corpuscular HGB Conc 33.5 g/dL (31.8-35.4); Mean Corpuscular Hemoglobin 29.3 pg (27.0-31.2); Mean Corpuscular Volume 87.4 fl (80-94); Nucleated Red Blood Cells % 0 %; Platelet Count 292 K/mm3 (142-424); Red Blood Count 5.09 M/mm3 (4.60-6.20); Red Cell Distribution Width-SD 41.6 fL; White Blood Count 16.9 K/mm3 (4.8-10.8)
[2025-08-13 15:01] LABS: Influenza A, PCR Not Detected (NotDetected); Influenza B, PCR Not Detected (NotDetected)
[2025-08-13 15:05] LABS: Albumin Level 4.9 g/dl (3.5-5.0); Chloride 82 mmol/L (98-107); Potassium 4.4 mmoL/L (3.5-5.1); Sodium 129 mmol/L (136-145)
[2025-08-13 15:07] LABS: Alanine Aminotransferase 25 U/L (12-78); Aspartate Amino Transferase 25 U/L (17-59); Blood Urea Nitrogen 31 mg/dl (9-20); Creatinine Clearance Estimated 112 mL/min (50-200); Creatinine,Serum 1.20 mg/dl (0.66-1.25); Estimated Glomerular Filt Rate 64 ml/min (>60); GFR (African American) 77 ML/MIN (>60)
[2025-08-13 15:08] LABS: Albumin/Globulin Ratio 1.3 (1.1-1.8); Alkaline Phosphatase 145 U/L (38-126); Anion Gap 36.4 mEq/L (5-15); Bilirubin,Total 0.7 mg/dl (0.2-1.3); Calcium 9.1 mg/dl (8.4-10.2); Carbon Dioxide 15 mmol/L (22.0-30.0); Globulin 3.8 g/dL (1.3-3.2); Lipase 307 U/L (23-300); Magnesium 2.8 mg/dl (1.6-2.3); Phosphorous 6.6 mg/dl (2.5-4.5); Total Protein,Serum 8.7 g/dl (6.3-8.2)
[2025-08-13 15:21] LABS: Glucose 829 mg/dl (74-100)
[2025-08-13] MEDS: INSULIN REGULAR, HUMAN 100 UNIT in 0.9 % SODIUM CHLORIDE 100 ML 10.1 UNIT IV (15:30)
--- NOTE | 2025-08-13 15:41 | XR_ITS ---
FINAL REPORT TECHNIQUE: Single view chest CLINICAL HISTORY: r/o infxn COMPARISON: 03/03/2022 FINDINGS: A single view of the chest was obtained. The heart and mediastinum are within normal limits. The lungs are clear. There is no pneumothorax. IMPRESSION: No acute cardiopulmonary process. Reviewed, Interpreted and Dictated by Edie Renner MD Transcribed by Nilda Morales Authenticated and [facility]
[2025-08-13 16:11] LABS: Microscopic, Urine URINE MICROSCOPIC (MICROSCOPIC)
[2025-08-13 16:17] LABS: Color,Urine YELLOW (Yellow); Glucose,Urine (UA) 3+ (Negative); Ketones,Urine 3+ (Negative); Leukocyte Esterase,Urine Negative (Negative); PH,Urine 5.5 (5.0-8.5); Protein,Urine Negative (Negative); Specific Gravity, Urine 1.015 (1.005-1.030); Urobilinogen,Urine 0.2 EU/dl (0.2)
[2025-08-13 16:17] LABS: Acetone, Serum (Rapid) Moderate (None Detect)
[2025-08-13] MEDS: CEFEPIME HCL 2 GM in 0.9 % SODIUM CHLORIDE 100 ML IV (16:21)
--- NOTE | 2025-08-13 16:26 | EXP.HP ---
History of Present Illness *Admission Date: 08/13/25 *Reason for visit:: weakness in hands *History of present illness: Mr. Ferguson is a 50-year-old male with history of diabetes managed with oral medications. Presented with several days of generalized weakness. States he has been progressively getting worse with his hands and speech. Dropping things and having a difficult time holding on. Presented weakness in a wheelchair. Alert and oriented to person. States he has been having increased urinary frequency, nocturia, polydipsia. Initial workup in the ER found to have a glucose of 829 and anion gap of 36. Presentation most consistent with DKA. Denies falls, trauma, syncope, abdominal pain, nausea or vomiting, chest pain or shortness of breath. No known sick contacts. Medicine consulted for admission and further management of DKA. On evaluation after arriving to the ICU, states he is feeling little bit better. Still quite weak however. Alert and oriented x 3. Grossly ill-appearing. Daughter at bedside. [facility] Disclaimer: The information contained in this section may have been updated after the patient was seen, as this information can be updated by other users. Medical History Diabetes Rib fracture Bronchitis Exposure to COVID-19 virus Viral syndrome Upper respiratory infection Dental abscess Periapical abscess Other acute sinusitis Surgical History Hx of plastic surgery History of appendectomy No pertinent past surgical history Family History Family/Other No significant family history Social History Smoking Status: Current every day smoker tobacco type: cigarettes packs per day: 1 second hand exposure: Yes alcohol intake: current alcohol intake frequency: holidays/special occasions only substance use type: former substance user and painkillers current occupational status: unemployed Travel in the last 8 weeks?: None Have you lived/traveled outside US in past 30 days?: No Contact w/someone who lives/traveled outside US past 30 days?: No Exposure to someone with infectious disease in past 14 days?: No Do you have a fever (greater than 100.4 F or 38 C)?: No Have you tested positive for COVID-19?: No Exposed to someone with COVID-19 in past 14 days?: No Do you have a sore throat?: No Do you have a cough?: No Do you have any weakness?: No Do you have any diarrhea?: No Are you experiencing any unusual bleeding?: No Do you have any muscle aches/pain?: No Do you have any abdominal pain?: No Are you experiencing loss of taste or smell?: No Other Medical History Have you received the Flu Vaccine for this season: No Have you received the Pneumonia Vaccine: No Review of Systems Review of Systems Review of systems (narrative): 14 point review of systems performed, pertinent positives and negatives as per HPI Meds Home Medications and Allergies Home Medications ?Medication ?Instructions ?Recorded ?Confirmed ?Type buprenorphine 8 mg-naloxone 2 mg tab sublingual 12/10/23 08/01/25 History sublingual tablet aspirin 81 mg tablet,delayed 81 mg PO DAILY 12/11/23 08/01/25 History release (Adult Low Dose Aspirin) atorvastatin 20 mg tablet (Lipitor) 20 mg PO DAILY #90 tabs 06/28/25 08/01/25 Rx losartan 50 mg-hydrochlorothiazide 1 tab PO DAILY #30 tabs 06/28/25 08/01/25 Rx 12.5 mg tablet semaglutide 0.25 mg or 0.5 mg (2 0.25 mg (0.368 mL) SQ WEEKLY #3 mL 06/28/25 08/01/25 Rx mg/3 mL) subcutaneous pen injector (Ozempic) metformin 500 mg tablet See Rx Instructions .Route 07/24/25 08/01/25 Rx .COMPLEX #180 tabs alprazolam 1 mg tablet 1 mg PO BID PRN anxiety #60 tabs 08/07/25 Rx New Prescriptions to Start Prescriptions: Allergies Allergy/AdvReac Type Severity Reaction Status Date / Time Penicillins (PENICILLINS) Allergy Mild Unknown Verified 08/01/25 10:54 allergy reaction levofloxacin (From LEVAQUIN) Allergy Unknown Unknown Verified 08/01/25 10:54 allergy reaction Exam Data for Last 24 hours Vital signs and Labs for Last 24 Hours: Temp Pulse Resp BP Pulse Ox O2 Del Method 98.5 F 111 H 12 111/64 96 Room Air 08/13/25 14:19 08/13/25 15:32 08/13/25 15:32 08/13/25 15:32 08/13/25 15:32 08/13/25 15:32 Laboratory Results - last 24 hr 08/13/25 14:36: WBC 16.9 H, RBC 5.09, Hgb 14.9, Hct 44.5, MCV 87.4, MCH 29.3, MCHC 33.5, RDW 13.0, Plt Count 292, MPV 12.1 H, Neut % (Auto) 68.0, Lymph % (Auto) 25.8, [place] % (Auto) 5.0, Eos % (Auto) 0.4, Baso % (Auto) 0.4, Neut # (Auto) 11.5 H, Lymph # (Auto) 4.4, [place] # (Auto) 0.9, Eos # (Auto) 0.1, Baso # (Auto) 0.1, VBG pH 7.30 L, VBG pCO2 31.1 L, VBG pO2 89.6 H, VBG HCO3 15.0 L, VBG Total CO2 15.9 L, VBG O2 Saturation 97.0 H, VBG Base Excess -11.4 L, VBG Lactic Acid 3.6 H, Sodium 129 L, Potassium 4.4, Chloride 82 L, Carbon Dioxide 15 L, Anion Gap 36.4 H, BUN 31 H, Creatinine 1.20, Estimated Creat Clear 112, Estimated GFR 64, Est GFR ( Amer) 77, Glucose 829 H*, Calcium 9.1, Phosphorus 6.6 H, Magnesium 2.8 H, Total Bilirubin 0.7, AST 25, ALT 25, Alkaline Phosphatase 145 H, Total Protein 8.7 H, Albumin 4.9, Globulin 3.8 H, Albumin/Globulin Ratio 1.3, Lipase 307 H, Acetone Level Moderate I & O for Last 24 hours: Intake & Output 08/10/25 08/11/25 08/12/25 08/13/25 23:59 23:59 23:59 23:59 Weight 108.862 kg Constitutional Constitutional: moderate distress, obese, chronically ill appearing and cooperative *Routine HEENT Exam Head: Present normocephalic Eye: Present EOMI and PERRL ENT: Present mucous membranes dry *Routine Neck Exam Neck: Present supple; Absent lymphadenopathy *Routine Respiratory Exam Respiratory: Present CTA bilaterally; Absent rhonchi, wheezes or crackles *Routine Cardiovascular Exam Cardiovascular: Present tachycardia; Absent murmur *Routine Abdominal Exam Abdominal: Present soft and normoactive bowel sounds; Absent tenderness *Routine Rectal Exam Rectal:: deferred *Routine Genitalia Exam Genitalia:: deferred *Routine Extremities Exam Extremities: Absent cyanosis, clubbing or edema *Routine Skin Exam Skin: Present intact and warm; Absent rash *Routine Neurological Exam Neurological: Present alert, oriented X3 and moving all extremities; Absent altered mental status Comments: Twitching in hands Assessment and Plan *Assessment and plan (1) DKA (diabetic ketoacidosis): Status: Acute Category: Medical Code(s): E11.10 - Type 2 diabetes mellitus with ketoacidosis without coma (2) Pseudohyponatremia: Status: Acute Category: Medical Code(s): R79.89 - Other specified abnormal findings of blood chemistry (3) Opioid use disorder in remission: Status: Acute Category: Medical Code(s): F11.91 - Opioid use, unspecified, in remission (4) Generalized anxiety disorder with panic attacks: Status: Acute Category: Medical Code(s): F41.1 - Generalized anxiety disorder; F41.0 - Panic disorder [episodic paroxysmal anxiety] (5) HLD (hyperlipidemia): Status: Acute Category: Medical Code(s): E78.5 - Hyperlipidemia, unspecified (6) Weakness: Status: Acute Category: Medical Code(s): R53.1 - Weakness (7) Dehydration: Status: Acute Category: Medical Code(s): E86.0 - Dehydration (8) Leukocytosis: Status: Acute Category: Medical Code(s): D72.829 - Elevated white blood cell count, unspecified Plan 50-year-old male who presents with weakness in his hands. Found to be in DKA with glucose of 829, anion gap of 36. Initiated on DKA protocol. Medicine consulted for admission. Discussed case with ER provider, request admission for insulin drip and IV fluids per protocol. I agreed to admit to the ICU for further care. Monitoring closely with labs every 4 hours to monitor electrolytes, kidney function, sodium replacement. Fingersticks every 2 hours. High risk for decompensation. No overt signs of infection as etiology for DKA. States he is only on metformin at home. Concern for poor compliance. Does complain of polyuria and polydipsia with nocturia over the past several weeks. Problems addressed as follows: DKA Pseudohyponatremia Hypochloremia - A1c ordered and pending. Patient with severe DKA with anion gap of 36, glucose 829. Phosphorus 6.6. Magnesium 2.8. Potassium 4.4. Sodium 129, chloride 82. Bicarb 15. - Repeat BMP every 4 hours per protocol. - Initiated on DKA insulin and fluid drip. Insulin 10 units/h weight-based per protocol. Monitoring fingersticks every 2 hours per protocol. Will titrate accordingly - Will initiate 15 units basal insulin this evening to facilitate closure of anion gap - Will consider endocrine consult in the morning - Consider electrolyte replacement as gap closes. Close monitoring of potassium. - Repeat CBC, CMP, magnesium ordered for the morning - TSH ordered and pending - pH 7.3 on presentation Leukocytosis of 16.9, no clear source of infection. Received cefepime 2 g once in the ER. Will continue ceftriaxone 1 g daily pending negative cultures or identified infection. - Urine with negative nitrate and negative leuk esterase. Had 3+ ketones. blood cultures pending Hypertension: Blood pressure 123/78 at this time. Will resume ARB therapy when appropriate Opiate use disorder in remission. Continue Suboxone 2 tabs daily Obesity complicates all aspects of his care full code full liquid/diabetic diet lovenox 40mg subcu daily
--- NOTE | 2025-08-13 16:33 | PC.NURSE ---
Notified House Superviser of the admission
--- NOTE | 2025-08-13 16:34 | PC.NURSE ---
FSBS too high to read on the monitor
[2025-08-13 16:35] LABS: Bilirubin,Urine 1+ (Negative)
[2025-08-13 16:41] LABS: Opiate Screen,Urine Negative ng/ml (<300); Phencyclidine Screen,Urine Negative ng/ml (<25)
--- NOTE | 2025-08-13 16:44 | PC.NURSE ---
report called to [facility] for room 263
[2025-08-13 16:46] LABS: Amphetamine/Metha Screen,Urine Negative ng/ml (<1000)
[2025-08-13 16:47] LABS: Barbiturates Screen,Urine Negative ng/ml (<200)
[2025-08-13 16:48] LABS: Benzodiazepines Screen,Urine Positive ng/ml (<200)
[2025-08-13 16:50] LABS: Methadone Screen,Urine Negative ng/ml (<300)
[2025-08-13 16:52] LABS: Bacteria,Urine Trace /lpf; WBC,Urine Occasional #/hpf (0-3)
--- NOTE | 2025-08-13 17:05 | PC.NURSE ---
Patient arrived to the unit via stretcher
[2025-08-13 17:30] LABS: POC Glucose,Bedside 524 gm/dL (70-110)
[2025-08-13 18:13] LABS: Coronavirus 19, PCR Detected (NotDetected)
[2025-08-13 18:15] LABS: Hemoglobin A1C 13.6 % (4.0-6.0)
[2025-08-13 18:17] LABS: POC Glucose,Bedside 470 gm/dL (70-110)
[2025-08-13] MEDS: 0.9 % SODIUM CHLORIDE 1000ML 1,000 ML 150 ML IV (18:24)
[2025-08-13] MEDS: VANCOMYCIN/WATER FOR INJ (PEG) 1.75 GM/350 ML PIGGYBACK IV (18:41)
[2025-08-13 18:47] LABS: Reflex Lactic Add Lactic Reflex
[2025-08-13 19:01] LABS: Anion Gap 33.0 mEq/L (5-15); Blood Urea Nitrogen 28 mg/dl (9-20); Calcium 8.8 mg/dl (8.4-10.2); Carbon Dioxide 13 mmol/L (22.0-30.0); Chloride 96 mmol/L (98-107); Creatinine Clearance Estimated 131 mL/min (50-200); Creatinine,Serum 1.00 mg/dl (0.66-1.25); Estimated Glomerular Filt Rate 79 ml/min (>60); GFR (African American) 95 ML/MIN (>60); Magnesium 2.4 mg/dl (1.6-2.3); Phosphorous 4.0 mg/dl (2.5-4.5); Potassium 5.0 mmoL/L (3.5-5.1); Sodium 137 mmol/L (136-145)
[2025-08-13 19:02] LABS: Glucose 552 mg/dl (74-100)
[2025-08-13 19:20] LABS: POC Glucose,Bedside 366 gm/dL (70-110)
[2025-08-13 19:26] LABS: Lactic Acid Follow Up (RFLX 1) 1.2 mmol/L (0.7-2.1)
[2025-08-13 20:14] LABS: POC Glucose,Bedside 365 gm/dL (70-110)
[2025-08-13 20:14] LABS: Thyroid Stimulating Hormone 0.21 uIU/mL (0.465-4.68)
[2025-08-13 20:56] LABS: Acetone, Serum (Rapid) Moderate (None Detect)
[2025-08-13 21:10] LABS: POC Glucose,Bedside 322 gm/dL (70-110)
[2025-08-13 21:56] LABS: Chloride 98 mmol/L (98-107); Potassium 4.2 mmoL/L (3.5-5.1); Sodium 135 mmol/L (136-145)
[2025-08-13 21:59] LABS: Anion Gap 22.2 mEq/L (5-15); Blood Urea Nitrogen 24 mg/dl (9-20); Carbon Dioxide 19 mmol/L (22.0-30.0); Creatinine Clearance Estimated 164 mL/min (50-200); Creatinine,Serum 0.80 mg/dl (0.66-1.25); Estimated Glomerular Filt Rate 102 ml/min (>60); GFR (African American) 123 ML/MIN (>60)
[2025-08-13 22:00] LABS: Calcium 8.5 mg/dl (8.4-10.2); Glucose 240 mg/dl (74-100); Magnesium 2.3 mg/dl (1.6-2.3); Phosphorous 2.5 mg/dl (2.5-4.5)
[2025-08-13 22:04] LABS: POC Glucose,Bedside 257 gm/dL (70-110)
[2025-08-13] MEDS: 0.9% NaCl w/20mEq KCL 1,000 ML 150 ML IV (22:57)
[2025-08-14] VITALS (28 sets, daily range): BP systolic 90–129; BP diastolic 57–82; PULSE 80–95; RESP 10–18; TEMP 36.6–36.9; O2SAT 93–97; BMI 35.7
[2025-08-14 00:04] LABS: POC Glucose,Bedside 226 gm/dL (70-110)
[2025-08-14 01:04] LABS: Anion Gap 17.8 mEq/L (5-15); Blood Urea Nitrogen 23 mg/dl (9-20); Calcium 8.4 mg/dl (8.4-10.2); Carbon Dioxide 22 mmol/L (22.0-30.0); Chloride 101 mmol/L (98-107); Creatinine Clearance Estimated 164 mL/min (50-200); Creatinine,Serum 0.80 mg/dl (0.66-1.25); Estimated Glomerular Filt Rate 102 ml/min (>60); GFR (African American) 123 ML/MIN (>60); Glucose 211 mg/dl (74-100); Magnesium 2.1 mg/dl (1.6-2.3); Phosphorous 2.2 mg/dl (2.5-4.5); Potassium 3.8 mmoL/L (3.5-5.1); Sodium 137 mmol/L (136-145)
[2025-08-14 02:05] LABS: POC Glucose,Bedside 205 gm/dL (70-110)
[2025-08-14 03:02] LABS: POC Glucose,Bedside 190 gm/dL (70-110)
[2025-08-14 04:04] LABS: POC Glucose,Bedside 201 gm/dL (70-110)
[2025-08-14 05:02] LABS: POC Glucose,Bedside 191 gm/dL (70-110)
[2025-08-14] MEDS: 0.9% NaCl w/20mEq KCL 1,000 ML 150 ML IV ×2 (05:25→07:03)
[2025-08-14 06:17] LABS: POC Glucose,Bedside 203 gm/dL (70-110)
[2025-08-14 06:29] LABS: Chloride 101 mmol/L (98-107); Potassium 4.4 mmoL/L (3.5-5.1); Sodium 136 mmol/L (136-145)
[2025-08-14 06:30] LABS: Hematocrit 39.6 % (42.0-52.0); Immature Granulocytes % 0.3 %; Mean Corpuscular HGB Conc 32.6 g/dL (31.8-35.4); Mean Corpuscular Hemoglobin 28.5 pg (27.0-31.2); Mean Corpuscular Volume 87.6 fl (80-94); Nucleated Red Blood Cells % 0 %; Platelet Count 226 K/mm3 (142-424); Red Blood Count 4.52 M/mm3 (4.60-6.20); Red Cell Distribution Width-SD 41.7 fL; White Blood Count 15.8 K/mm3 (4.8-10.8)
[2025-08-14 06:32] LABS: Anion Gap 16.4 mEq/L (5-15); Blood Urea Nitrogen 19 mg/dl (9-20); Calcium 8.2 mg/dl (8.4-10.2); Carbon Dioxide 23 mmol/L (22.0-30.0); Creatinine Clearance Estimated 189 mL/min (50-200); Creatinine,Serum 0.70 mg/dl (0.66-1.25); Estimated Glomerular Filt Rate 119 ml/min (>60); GFR (African American) 144 ML/MIN (>60); Glucose 185 mg/dl (74-100); Magnesium 2.1 mg/dl (1.6-2.3); Phosphorous 2.3 mg/dl (2.5-4.5)
[2025-08-14 06:37] LABS: Hemoglobin 13.1 g/dL (14.1-18.0)
[2025-08-14 06:54] LABS: POC Glucose,Bedside 205 gm/dL (70-110)
--- NOTE | 2025-08-14 07:41 | PC.NURSE ---
Per , stop 0.9% NaCl w/ 20 mEq of KCL as ordered on DEC and start D5NS @ 75mL/hr 1,000mL bag IV refer to MAR. Continuation of care plan.
--- NOTE | 2025-08-14 07:42 | HMH.PHAINT1 ---
Pharmacy Intervention Comments: MEDICATION RECONCILIATION COMPLETED ON PATIENT USING EXTERNAL FILL HISTORY FROM PHARMACY AND JUSTICE REPORT. -BILLY SUMMERS, BOD
[2025-08-14] MEDS: BUPRENORPHINE/NALOXONE 8MG/2MG ODT 2 EACH SL (08:02)
[2025-08-14 08:16] LABS: POC Glucose,Bedside 209 gm/dL (70-110)
[2025-08-14] MEDS: INSULIN REGULAR, HUMAN 100 UNIT in 0.9 % SODIUM CHLORIDE 100 ML IV (08:40)
[2025-08-14 09:08] LABS: Anion Gap 15.6 mEq/L (5-15); Blood Urea Nitrogen 18 mg/dl (9-20); Calcium 8.6 mg/dl (8.4-10.2); Carbon Dioxide 24 mmol/L (22.0-30.0); Chloride 101 mmol/L (98-107); Creatinine Clearance Estimated 189 mL/min (50-200); Creatinine,Serum 0.70 mg/dl (0.66-1.25); Estimated Glomerular Filt Rate 119 ml/min (>60); GFR (African American) 144 ML/MIN (>60); Glucose 248 mg/dl (74-100); Magnesium 1.9 mg/dl (1.6-2.3); Potassium 4.6 mmoL/L (3.5-5.1); Sodium 136 mmol/L (136-145)
[2025-08-14 09:10] LABS: POC Glucose,Bedside 250 gm/dL (70-110)
[2025-08-14 09:14] LABS: Phosphorous 1.9 mg/dl (2.5-4.5)
--- NOTE | 2025-08-14 09:25 | P.CONENDO_ITS ---
History of Present Illness *Admission Date: 08/13/25 *History of present illness: Mr. Ferguson is a 50-year-old male with history of diabetes mellitus type II, HLD, HTN, obesity, and h/o opioid use currently in remission. He reported of blurry vision, weakness, unable to hold things at presentation. He was diagnosed with DKA. He mentioned that he was diagnosed with diabetes over a year ago and has been on Metformin. He was recently evaluated by PCP and was prescribed ozempic. But he never started it as he was concerned of it's side effects. He has been having increased urinary frequency, nocturia, polydipsia. Recent hba1c : 13.6% from Aug 2025 The following diabetes history was provided: -DM type:Type II ; Diagnosed Dec 2023 -DM home medications: Metformin 500mg BID -Medication compliance: Fair, misses doses of Metformin -Monitoring: None -Hx of DKA: Currently admitted with DKA -Complications: Not evaluated -Steroids: None Provider managing diabetes: PCP, patient was last seen by PCP in Jun. He was advised to test for hba1c and start Ozempic. However, patient did not follow up for labs and did not start his medication. Insulin Total Daily Dose- Insulin Gtt ~2.5u/hr [facility] Disclaimer: The information contained in this section may have been updated after the patient was seen, as this information can be updated by other users. Medical History Diabetes Rib fracture Bronchitis Exposure to COVID-19 virus Viral syndrome Upper respiratory infection Dental abscess Periapical abscess Other acute sinusitis Surgical History Hx of plastic surgery History of appendectomy No pertinent past surgical history Family History Family/Other No significant family history Social History Smoking Status: Current every day smoker tobacco type: cigarettes packs per day: 1 second hand exposure: Yes alcohol intake: current alcohol intake frequency: holidays/special occasions only substance use type: former substance user and painkillers current occupational status: unemployed Travel in the last 8 weeks?: None Have you lived/traveled outside US in past 30 days?: No Contact w/someone who lives/traveled outside US past 30 days?: No Exposure to someone with infectious disease in past 14 days?: No Do you have a fever (greater than 100.4 F or 38 C)?: No Have you tested positive for COVID-19?: No Exposed to someone with COVID-19 in past 14 days?: No Do you have a sore throat?: No Do you have a cough?: No Do you have any weakness?: No Do you have any diarrhea?: No Are you experiencing any unusual bleeding?: No Do you have any muscle aches/pain?: No Do you have any abdominal pain?: No Are you experiencing loss of taste or smell?: No Review of Systems Review of Systems Review of systems:: pertinent systems reviewed and negative unless documented below Constitutional Constitutional: Reports fatigue, Reports lethargy and Reports weakness Eyes Eyes: Reports change in vision *Cardiovascular Cardiovascular: Denies dyspnea *Respiratory Respiratory: Denies dyspnea *Gastrointestinal Gastrointestinal: Denies abdominal pain *Neurologic Neurologic: Reports weakness Endocrine Endocrine: Reports fatigue, Reports polydipsia and Reports polyuria Exam Data for Last 24 hours Vital signs and Labs for Last 24 Hours: Temp Pulse Resp BP Pulse Ox O2 Del Method 98.3 F 90 16 107/69 L 96 Room Air 08/14/25 08:00 08/14/25 09:00 08/14/25 09:00 08/14/25 09:00 08/14/25 09:00 08/14/25 09:00 Laboratory Results - last 24 hr 08/13/25 14:36: WBC 16.9 H, RBC 5.09, Hgb 14.9, Hct 44.5, MCV 87.4, MCH 29.3, MCHC 33.5, RDW 13.0, Plt Count 292, MPV 12.1 H, Neut % (Auto) 68.0, Lymph % (Auto) 25.8, [place] % (Auto) 5.0, Eos % (Auto) 0.4, Baso % (Auto) 0.4, Neut # (Auto) 11.5 H, Lymph # (Auto) 4.4, [place] # (Auto) 0.9, Eos # (Auto) 0.1, Baso # (Auto) 0.1, VBG pH 7.30 L, VBG pCO2 31.1 L, VBG pO2 89.6 H, VBG HCO3 15.0 L, VBG Total CO2 15.9 L, VBG O2 Saturation 97.0 H, VBG Base Excess -11.4 L, VBG Lactic Acid 3.6 H, Sodium 129 L, Potassium 4.4, Chloride 82 L, Carbon Dioxide 15 L, A nion Gap 36.4 H, BUN 31 H, Creatinine 1.20, Estimated Creat Clear 112, Estimated GFR 64, Est GFR ( Amer) 77, Glucose 829 H*, Hemoglobin A1c 13.6 H, Calcium 9.1, Phosphorus 6.6 H, Magnesium 2.8 H, Total Bilirubin 0.7, AST 25, ALT 25, Alkaline Phosphatase 145 H, Total Protein 8.7 H, Albumin 4.9, Globulin 3.8 H , Albumin/Globulin Ratio 1.3, Lipase 307 H, Acetone Level Moderate 08/13/25 14:55: SARS-CoV-2 (PCR) Detected A, Influenza A Untype (PCR) Not detected, Influenza Type B (PCR) Not detected 08/13/25 16:00: Urine Color Yellow, Urine Appearance Clear, Urine pH 5.5, Ur Specific [place] 1.015, Urine Protein Negative, Urine Glucose (UA) 3+, Urine Ketones 3+, Urine Blood Negative, Urine Nitrate Negative, Urine Bilirubin 1+ A, Urine Urobilinogen 0.2, Ur Leukocyte Esterase Negative, Urine RBC None, Urine WBC Occasional, Ur Squamous Epith Cells None, Urine Bacteria Trace, Urine Opiates Screen Negative, Urine Methadone Screen Negative, Ur Barbituates Screen Negative, Ur Phencyclidine Scrn Negative, Ur Amphetamines Screen Negative, U Benzodiazepines Scrn Positive H, Urine Cocaine Screen Negative, U Marijuana (THC) Screen Negative 08/13/25 17:16: POC Glucose 524 H* 08/13/25 17:21: Sodium 137, Potassium 5.0, Chloride 96 L, Carbon Dioxide 13 L, A nion Gap 33.0 H, BUN 28 H, Creatinine 1.00, Estimated Creat Clear 131, Estimated GFR 79, Est GFR ( Amer) 95 D, Glucose 552 H* D, Calcium 8.8, Phosphorus 4.0 D, Magnesium 2.4 H D, TSH 0.21 L, Acetone Level Moderate 08/13/25 18:09: POC Glucose 470 H* 08/13/25 19:05: Lactate 1.2 08/13/25 19:13: POC Glucose 366 H* 08/13/25 19:57: POC Glucose 365 H* 08/13/25 21:03: POC Glucose 322 H* 08/13/25 21:28: Sodium 135 L, Potassium 4.2, Chloride 98, Carbon Dioxide 19 L, A nion Gap 22.2 H, BUN 24 H, Creatinine 0.80, Estimated Creat Clear 164, Estimated GFR 102, Est GFR ( Amer) 123 D, Glucose 240 H D, Calcium 8.5, Phosphorus 2.5 D, Magnesium 2.3 08/13/25 21:56: POC Glucose 257 H 08/13/25 23:56: POC Glucose 226 H 08/14/25 00:41: Sodium 137, Potassium 3.8, Chloride 101, Carbon Dioxide 22, A nion Gap 17.8 H, BUN 23 H, Creatinine 0.80, Estimated Creat Clear 164, Estimated GFR 102, Est GFR ( Amer) 123, Glucose 211 H, Calcium 8.4, Phosphorus 2.2 L, Magnesium 2.1 08/14/25 01:58: POC Glucose 205 H 08/14/25 02:55: POC Glucose 190 H 08/14/25 03:56: POC Glucose 201 H 08/14/25 04:54: POC Glucose 191 H 08/14/25 05:11: WBC 15.8 H, RBC 4.52 L, Hgb 13.1 L D, Hct 39.6 L, MCV 87.6, MCH 28.5, MCHC 32.6, RDW 13.0, Plt Count 226, MPV 11.8 H, Neut % (Auto) 62.2, Lymph % (Auto) 27.0, [place] % (Auto) 8.0, Eos % (Auto) 2.1, Baso % (Auto) 0.4, Neut # (Auto) 9.9 H, Lymph # (Auto) 4.3, [place] # (Auto) 1.3 H, Eos # (Auto) 0.3, Baso # (Auto) 0.1, Sodium 136, Potassium 4.4, Chloride 101, Carbon Dioxide 23, Anion Gap 16.4 H, BUN 19, Creatinine 0.70, Estimated Creat Clear 189, Estimated GFR 119, Est GFR ( Amer) 144, Glucose 185 H, Calcium 8.2 L, Phosphorus 2.3 L, Magnesium 2.1 08/14/25 06:10: POC Glucose 203 H 08/14/25 06:48: POC Glucose 205 H 08/14/25 08:03: POC Glucose 209 H 08/14/25 08:48: Sodium 136, Potassium 4.6, Chloride 101, Carbon Dioxide 24, A nion Gap 15.6 H, BUN 18, Creatinine 0.70, Estimated Creat Clear 189, Estimated GFR 119, Est GFR ( Amer) 144, Glucose 248 H D, Calcium 8.6, Phosphorus 1.9 L, Magnesium 1.9 08/14/25 09:02: POC Glucose 250 H I & O for Last 24 hours: Intake & Output 08/11/25 08/12/25 08/13/25 08/14/25 23:59 23:59 23:59 23:59 Intake Total 3325.35 / 3325.35 1860.875 / 1860.875 Output Total 500 / 1100 1100 / 1100 Balance 2825.35 / 2225.35 760.875 / 760.875 Weight 234 lb 2 oz 236 lb 1.841 oz Constitutional Constitutional: no acute distress, morbidly obese and obese *Routine HEENT Exam Head: Present normocephalic and atraumatic Eye: Present EOMI *Routine Neck Exam Neck: Present full ROM *Routine Respiratory Exam Respiratory: Present normal respiratory effort *Routine Cardiovascular Exam Cardiovascular: Present Normal S1, Normal S2 and murmur *Routine Abdominal Exam Abdominal: Present soft and distended; Absent tenderness *Routine Extremities Exam Extremities: Present edema and full ROM Meds Home Medications and Allergies Home Medications ?Medication ?Instructions ?Recorded ?Confirmed ?Type buprenorphine 8 mg-naloxone 2 mg 2 tab sublingual ADOLFO Y 12/10/23 08/13/25 History sublingual tablet aspirin 81 mg tablet,delayed 81 mg PO DAILY 12/11/23 1 History release (Adult Low Dose Aspirin) atorvastatin 20 mg tablet (Lipitor) 20 mg PO DAILY #90 tabs 06/28/25 08/13/25 Rx losartan 50 mg-hydrochlorothiazide 1 tab PO DAILY #30 tabs 06/28/25 08/13/25 Rx 12.5 mg tablet alprazolam 1 mg tablet 1 mg PO BID PRN anxiety #60 tabs 08/07/25 08/13/25 Rx metformin 500 mg tablet 500 mg PO BID 08/14/2508/14 History New Prescriptions to Start Prescriptions: Allergies Allergy/AdvReac Type Severity Reaction Status Date / Time Penicillins (PENICILLINS) Allergy Mild Unknown Verified 08/01/25 10:54 allergy reaction levofloxacin (From LEVAQUIN) Allergy Unknown Unknown Verified 08/01/25 10:54 allergy reaction Assessment and Plan *Assessment and plan (1) DKA (diabetic ketoacidosis): Status: Acute Qualifiers: Diabetes mellitus type: type 2 Category: Medical Code(s): E11.10 - Type 2 diabetes mellitus with ketoacidosis without coma (2) Diabetes: Status: Acute Qualifiers: Diabetes mellitus type: type 2 Diabetes mellitus mcfp insulin use: without ocean transportation intermediary use Diabetes mellitus complication status: without complication Qualified Code(s): E11.9 - Type 2 diabetes mellitus without complications Category: Medical Code(s): E11.9 - Type 2 diabetes mellitus without complications (3) Abnormal thyroid blood test: Status: Acute Category: Medical Code(s): R79.89 - Other specified abnormal findings of blood chemistry Plan: TSH suppressed, check Ft4 levels Plan - Poorly controlled diabetes due to poor follow up and poor adherence. - Recommend transitioning to basal and bolus regimen as his acidosis resolved. - His insulin requirements since overnight ~ 60u/24hr - Stop insulin drip 2 hrs after he receives Glargine - Patient tolerated PO well this AM, recommend carb consistent diet. - Educated patient on how to check BG regularly and on how to dose insulin after discharge. Basal: Start 24 units Glargine Bolus: Start 6 units lispro w/ meals TID Correction: 1:50 for BG>150 along with meals. Discharge plan: - Insulin regimen: Glargine 24 units and Lispro 6 units w/ meals - (preferably insulin pens) - Continue Metformin 500mg BID, hold Ozempic - Ensure patient has supplies for blood glucose monitoring (Meter, test strips, lancets, and alcohol swabs) - Follow up in 2 weeks outpatient. Results Labs 08/14/25 05:11 08/14/25 08:48 labs: Diabetes panel 08/13/25 08/13/25 08/13/25 14:36 17:21 21:28 Creatinine 1.20 1.00 0.80 Glucose 829 H* 552 H* D 240 H D Hemoglobin A1c 13.6 H 08/14/25 08/14/25 08/14/25 00:41 05:11 08:48 Creatinine 0.80 0.70 0.70 Glucose 211 H 185 H 248 H D Hemoglobin A1c Thyroid panel 08/13/25 17:21 TSH 0.21 L Calcium panel 08/13/25 08/13/25 08/13/25 14:36 17:21 21:28 Calcium 9.1 8.8 8.5 Phosphorus 6.6 H 4.0 D 2.5 D Magnesium 2.8 H 2.4 H D 2.3 Alkaline Phosphatase 145 H Albumin 4.9 08/14/25 08/14/25 08/14/25 00:41 05:11 08:48 Calcium 8.4 8.2 L 8.6 Phosphorus 2.2 L 2.3 L 1.9 L Magnesium 2.1 2.1 1.9 Alkaline Phosphatase Albumin Comprehensive Metabolic Panel 08/13/25 08/13/25 08/13/25 14:36 17:21 21:28 Sodium 129 L 137 135 L Potassium 4.4 5.0 4.2 Chloride 82 L 96 L 98 Carbon Dioxide 15 L 13 L 19 L Anion Gap 36.4 H 33.0 H 22.2 H BUN 31 H 28 H 24 H Creatinine 1.20 1.00 0.80 Estimated Creat Clear 112 131 164 Est GFR ( Amer) 77 95 D 123 D Glucose 829 H* 552 H* D 240 H D AST 25 ALT 25 Alkaline Phosphatase 145 H Total Protein 8.7 H Albumin 4.9 Globulin 3.8 H Albumin/Globulin Ratio 1.3 08/14/25 08/14/25 08/14/25 00:41 05:11 08:48 Sodium 137 136 136 Potassium 3.8 4.4 4.6 Chloride 101 101 101 Carbon Dioxide 22 23 24 Anion Gap 17.8 H 16.4 H 15.6 H BUN 23 H 19 18 Creatinine 0.80 0.70 0.70 Estimated Creat Clear 164 189 189 Est GFR ( Amer) 123 144 144 Glucose 211 H 185 H 248 H D AST ALT Alkaline Phosphatase Total Protein Albumin Globulin Albumin/Globulin Ratio
--- NOTE | 2025-08-14 10:11 | PC.NURSE ---
Primary RN spoke with Rose Eisenberg at this time. Primary RN notified Rose Eisenberg NP of Verbal orders received from [facility]. Per Neda, start patient on a diabetic diet, administer 12 units of Glargine insulin now and two hours after administration stop Insulin drip. Neda states I will order SSI and 4 units of Lispro to administer with SSI with meals. KEYUR Rose aware. Per KEYUR Rose stop DKA protocol fluids when patients meal arrives. Continuation of care plan.
[2025-08-14 10:19] LABS: POC Glucose,Bedside 247 gm/dL (70-110)
--- NOTE | 2025-08-14 10:50 | PC.NURSE ---
Primary RN spoke with . , states administer 24 units Glargine subcutaneous as ordered on DEC, 6 units Lispro with SSI with meals as ordered on DEC, instead of previous order given. Refer to previous note. Stop Insulin drip 2 hours after administering Glargine Insulin Subcut dose. Rose Eisenberg NP notified. Per Rose Eisenberg, Stop D5NS fluids once patient has a meal tray. Meal tray at bedside at this time. Continuation of care plan.
[2025-08-14] MEDS: INSULIN GLARGINE 100 UNITS/ML 3ML FLEXPEN 24 UNIT SUBCUT (11:01)
--- NOTE | 2025-08-14 11:01 | PC.NURSE ---
Addendum entered by Petra Luis RN 08/14/25 18:43: Patient verbalizes understanding to teaching. Continuation of care plan. Original Note: Patient educated on purpose of long acting insulin. Patient educated on administration of Insulin through an insulin pen. Continuation of care plan.
[2025-08-14 11:02] LABS: Free T4 (Free Thyroxine) 1.44 ng/dl (0.78-2.19)
[2025-08-14 11:05] LABS: POC Glucose,Bedside 261 gm/dL (70-110)
--- NOTE | 2025-08-14 11:20 | PC.NURSE ---
Patient complains of sore throat at this time. Patient has white patches on the inside of cheeks. Coating on posterior of tongue. notified. Continuation of care plan.
[2025-08-14 12:07] LABS: POC Glucose,Bedside 252 gm/dL (70-110)
[2025-08-14] MEDS: humaLOG 100 UNITS/ML 10ML VIAL (SSI) SUBCUT ×2 (12:12→16:32)
[2025-08-14] MEDS: humaLOG 100 UNITS/ML 10ML VIAL (SSI) 6 UNIT SUBCUT ×2 (12:12→16:31)
--- NOTE | 2025-08-14 12:15 | PC.NURSE ---
Patient educated on the purpose of short acting insulin. Patient educated on how to administer short acting insulin via insulin syringe. Patient verbalizes understand. Continuation of care plan.
--- NOTE | 2025-08-14 12:45 | EXP.ACUTE.PN ---
Subjective *Date: 08/14/25 *Time: 22:16 Interval history: Reports feeling significant better today. Has a scratchy throat. Minimal cough overnight. Respiratory panel returned positive for COVID. Denies fever. No nausea or vomiting. Tolerating liquids. Tremors/twitching in hands improving Medical Exam Vital signs and Labs for Last 24 Hours: Vital Signs Temp Pulse Pulse Resp BP BP Pulse Ox 08/14/25 12:00 94 L 08/14/25 12:00 89 16 128/81 96 08/14/25 11:00 08/14/25 11:00 97.9 F 92 H 18 117/75 97 08/14/25 10:00 86 16 118/82 97 08/14/25 09:00 90 16 107/69 L 96 08/14/25 09:00 08/14/25 08:00 98.3 F 92 H 16 129/78 96 08/14/25 08:00 94 H 08/14/25 07:31 97 08/14/25 07:23 08/14/25 07:00 85 16 114/80 97 08/14/25 06:49 08/14/25 06:00 86 12 113/65 95 08/14/25 05:06 08/14/25 05:00 85 11 L 107/70 L 95 08/14/25 04:15 95 08/14/25 04:15 90 08/14/25 04:00 97.9 F 88 12 125/76 95 08/14/25 03:05 08/14/25 03:00 90 11 L 122/82 97 08/14/25 02:00 86 12 98/69 L 95 08/14/25 01:04 08/14/25 01:00 92 H 12 108/65 L 94 L 08/14/25 00:47 90 08/14/25 00:25 94 L 08/14/25 00:00 98.2 F 93 H 12 108/69 L 96 08/13/25 23:13 08/13/25 23:00 91 H 12 95/62 L 93 L 08/13/25 22:00 91 H 12 93/69 L 94 L 08/13/25 21:06 08/13/25 21:00 92 H 14 119/68 95 08/13/25 20:15 97.8 F 96 H 11 L 108/76 L 95 08/13/25 20:15 95 H 108/76 L 94 L 08/13/25 20:15 95 08/13/25 19:00 97 H 10 L 112/75 96 08/13/25 18:53 08/13/25 18:53 106 H 18 117/81 97 08/13/25 18:00 113 H 16 117/81 96 08/13/25 17:38 115 H 18 123/78 96 08/13/25 17:17 98.2 F 111 H 18 123/78 95 08/13/25 17:00 08/13/25 16:47 98.4 F 103 H 22 101/62 L 08/13/25 16:44 96 08/13/25 15:32 111 H 12 111/64 96 08/13/25 14:46 117 H 15 117/71 94 L 08/13/25 14:19 98.5 F 132 H 18 143/82 H 96 O2 Del Method 08/14/25 12:00 Room Air 08/14/25 12:00 Room Air 08/14/25 11:00 Room Air 08/14/25 11:00 Room Air 08/14/25 10:00 Room Air 08/14/25 09:00 Room Air 08/14/25 09:00 Room Air 08/14/25 08:00 Room Air 08/14/25 08:00 08/14/25 07:31 Room Air 08/14/25 07:23 Room Air 08/14/25 07:00 Room Air 08/14/25 06:49 Room Air 08/14/25 06:00 Room Air 08/14/25 05:06 Room Air 08/14/25 05:00 08/14/25 04:15 Room Air 08/14/25 04:15 08/14/25 04:00 Room Air 08/14/25 03:05 Room Air 08/14/25 03:00 08/14/25 02:00 Room Air 08/14/25 01:04 Room Air 08/14/25 01:00 08/14/25 00:47 08/14/25 00:25 Room Air 08/14/25 00:00 Room Air 08/13/25 23:13 Room Air 08/13/25 23:00 08/13/25 22:00 Room Air 08/13/25 21:06 Room Air 08/13/25 21:00 08/13/25 20:15 Room Air 08/13/25 20:15 Room Air 08/13/25 20:15 Room Air 08/13/25 19:00 08/13/25 18:53 Room Air 08/13/25 18:53 Room Air 08/13/25 18:00 Room Air 08/13/25 17:38 Room Air 08/13/25 17:17 Room Air 08/13/25 17:00 Room Air 08/13/25 16:47 08/13/25 16:44 Room Air 08/13/25 15:32 Room Air 08/13/25 14:46 08/13/25 14:19 Room Air Intake and Output 08/13/25 08/14/25 08/14/25 23:59 07:59 15:59 Intake Total 3325.35 / 3325.35 1255.568 / 2099.887 844.319 / 2099.887 Output Total 500 / 1100 600 / 1100 500 / 1100 Balance 2825.35 / 2225.35 655.568 / 999.887 344.319 / 999.887 Intake: Intake, Oral Amount 105 / 105 335 / 335 Intake, Total IV Amount 3220.35 / 3220.35 1255.568 / 1764.887 509.319 / 1764.887 0.9 % Sodium Chloride 1000ML 1, 685 / 685 000 ml @ 150 mls/hr IV .Q6H40M [facility] Rx#:[id number] 0.9 % Sodium Chloride 1000ML 1, 1000 / 1000 000 ml @ 999 mls/hr IV .Q1H1M [facility] Rx#:[id number] 0.9 % Sodium Chloride 1000ML 1, 1000 / 1000 000 ml @ 999 mls/hr IV .Q1H1M [facility] Rx#:[id number] 0.9% NaCl w/20mEq KCL 1,000 ml 1215 / 1470 255 / 1470 @ 150 mls/hr IV .Q6H40M [facility] Rx# :[id number] Cefepime HCl 2 gm In 0.9 % 100 / 100 Sodium Chloride 100 ml @ 200 mls/hr IV ONCE [facility] Rx#:[id number] Ceftriaxone Sodium 1 gm In 0.9 50 / 50 % Sodium Chloride 50 ml @ 100 mls/hr IV Q24H [facility] Rx#: [id number] Dextrose 5 % and 0.9 % NaCl 1, 235 / 235 000 ml @ 75 mls/hr IV .[id number] [facility] Rx#:[id number] Insulin Regular, Human 100 unit 35.35 / 35.35 40.568 / 59.887 19.319 / 59.887 In 0.9 % Sodium Chloride 100 ml @ 10 UNIT/HR 10.1 mls/hr IV .Q10H [facility] Rx#:[id number] Vancomycin/Water For Inj (Peg) 350 / 350 1.75 gm In 350 ml @ 175 mls/hr IV ONCE ONE Rx#:[id number] Output: Output, Urine Amount 500 / 1100 600 / 1100 500 / 1100 Other: Weight 106.197 kg 107.1 kg Patient Weight 08/14/25 23:59 Weight 107.1 kg Laboratory Results - last 24 hr 08/13/25 14:36: WBC 16.9 H, RBC 5.09, Hgb 14.9, Hct 44.5, MCV 87.4, MCH 29.3, MCHC 33.5, RDW 13.0, Plt Count 292, MPV 12.1 H, Neut % (Auto) 68.0, Lymph % (Auto) 25.8, [place] % (Auto) 5.0, Eos % (Auto) 0.4, Baso % (Auto) 0.4, Neut # (Auto) 11.5 H, Lymph # (Auto) 4.4, [place] # (Auto) 0.9, Eos # (Auto) 0.1, Baso # (Auto) 0.1, VBG pH 7.30 L, VBG pCO2 31.1 L, VBG pO2 89.6 H, VBG HCO3 15.0 L, VBG Total CO2 15.9 L, VBG O2 Saturation 97.0 H, VBG Base Excess -11.4 L, VBG Lactic Acid 3.6 H, Sodium 129 L, Potassium 4.4, Chloride 82 L, Carbon Dioxide 15 L, Anion Gap 36.4 H, BUN 31 H, Creatinine 1.20, Estimated Creat Clear 112, Estimated GFR 64, Est GFR ( Amer) 77, Glucose 829 H*, Hemoglobin A1c 13.6 H, Calcium 9.1, Phosphorus 6.6 H, Magnesium 2.8 H, Total Bilirubin 0.7, AST 25, ALT 25, Alkaline Phosphatase 145 H, Total Protein 8.7 H, Albumin 4.9, Globulin 3.8 H, Albumin/Globulin Ratio 1.3, Lipase 307 H, Acetone Level Moderate 08/13/25 14:55: SARS-CoV-2 (PCR) Detected A, Influenza A Untype (PCR) Not detected, Influenza Type B (PCR) Not detected 08/13/25 16:00: Urine Color Yellow, Urine Appearance Clear, Urine pH 5.5, Ur Specific [place] 1.015, Urine Protein Negative, Urine Glucose (UA) 3+, Urine Ketones 3+, Urine Blood Negative, Urine Nitrate Negative, Urine Bilirubin 1+ A, Urine Urobilinogen 0.2, Ur Leukocyte Esterase Negative, Urine RBC None, Urine WBC Occasional, Ur Squamous Epith Cells None, Urine Bacteria Trace, Urine Opiates Screen Negative, Urine Methadone Screen Negative, Ur Barbituates Screen Negative, Ur Phencyclidine Scrn Negative, Ur Amphetamines Screen Negative, U Benzodiazepines Scrn Positive H, Urine Cocaine Screen Negative, U Marijuana (THC) Screen Negative 08/13/25 17:16: POC Glucose 524 H* 08/13/25 17:21: Sodium 137, Potassium 5.0, Chloride 96 L, Carbon Dioxide 13 L, Anion Gap 33.0 H, BUN 28 H, Creatinine 1.00, Estimated Creat Clear 131, Estimated GFR 79, Est GFR ( Amer) 95 D, Glucose 552 H* D, Calcium 8.8, Phosphorus 4.0 D, Magnesium 2.4 H D, TSH 0.21 L, Acetone Level Moderate 08/13/25 18:09: POC Glucose 470 H* 08/13/25 19:05: Lactate 1.2 08/13/25 19:13: POC Glucose 366 H* 08/13/25 19:57: POC Glucose 365 H* 08/13/25 21:03: POC Glucose 322 H* 08/13/25 21:28: Sodium 135 L, Potassium 4.2, Chloride 98, Carbon Dioxide 19 L, Anion Gap 22.2 H, BUN 24 H, Creatinine 0.80, Estimated Creat Clear 164, Estimated GFR 102, Est GFR ( Amer) 123 D, Glucose 240 H D, Calcium 8.5, Phosphorus 2.5 D, Magnesium 2.3 08/13/25 21:56: POC Glucose 257 H 08/13/25 23:56: POC Glucose 226 H 08/14/25 00:41: Sodium 137, Potassium 3.8, Chloride 101, Carbon Dioxide 22, Anion Gap 17.8 H, BUN 23 H, Creatinine 0.80, Estimated Creat Clear 164, Estimated GFR 102, Est GFR ( Amer) 123, Glucose 211 H, Calcium 8.4, Phosphorus 2.2 L, Magnesium 2.1 08/14/25 01:58: POC Glucose 205 H 08/14/25 02:55: POC Glucose 190 H 08/14/25 03:56: POC Glucose 201 H 08/14/25 04:54: POC Glucose 191 H 08/14/25 05:11: WBC 15.8 H, RBC 4.52 L, Hgb 13.1 L D, Hct 39.6 L, MCV 87.6, MCH 28.5, MCHC 32.6, RDW 13.0, Plt Count 226, MPV 11.8 H, Neut % (Auto) 62.2, Lymph % (Auto) 27.0, [place] % (Auto) 8.0, Eos % (Auto) 2.1, Baso % (Auto) 0.4, Neut # (Auto) 9.9 H, Lymph # (Auto) 4.3, [place] # (Auto) 1.3 H, Eos # (Auto) 0.3, Baso # (Auto) 0.1, Sodium 136, Potassium 4.4, Chloride 101, Carbon Dioxide 23, Anion Gap 16.4 H, BUN 19, Creatinine 0.70, Estimated Creat Clear 189, Estimated GFR 119, Est GFR ( Amer) 144, Glucose 185 H, Calcium 8.2 L, Phosphorus 2.3 L, Magnesium 2.1, Free T4 1.44 08/14/25 06:10: POC Glucose 203 H 08/14/25 06:48: POC Glucose 205 H 08/14/25 08:03: POC Glucose 209 H 08/14/25 08:48: Sodium 136, Potassium 4.6, Chloride 101, Carbon Dioxide 24, Anion Gap 15.6 H, BUN 18, Creatinine 0.70, Estimated Creat Clear 189, Estimated GFR 119, Est GFR ( Amer) 144, Glucose 248 H D, Calcium 8.6, Phosphorus 1.9 L, Magnesium 1.9 08/14/25 09:02: POC Glucose 250 H 08/14/25 10:11: POC Glucose 247 H 08/14/25 10:56: POC Glucose 261 H 08/14/25 11:58: POC Glucose 252 H I & O for Labs for Last 24 Hours: Intake & Output 08/11/25 08/12/25 08/13/25 08/14/25 23:59 23:59 23:59 23:59 Intake Total 3325.35 / 3325.35 2099.887 / 2099.887 Output Total 500 / 1100 1100 / 1100 Balance 2825.35 / 2225.35 999.887 / 999.887 Weight 106.197 kg 107.1 kg Constitutional: Present no acute distress, obese, chronically ill appearing and cooperative Head: Present atraumatic and normocephalic ENT: Present normal exam Respiratory: Present rhonchi and normal respiratory effort; Absent wheezes or crackles Cardiac: Present Reg Rate and Rhythm GI: Present soft and normal bowel sounds; Absent distention or tenderness Extremities: Present normal inspection and full ROM Skin: Present intact; Absent erythema Neuro: Present Grossly Intact, alert, awake, oriented x 3 and moves all extremities Assessment and Plan *Assessment and plan (1) DKA (diabetic ketoacidosis): Status: Acute Qualifiers: Diabetes mellitus type: type 2 Category: Medical Code(s): E11.10 - Type 2 diabetes mellitus with ketoacidosis without coma (2) Pseudohyponatremia: Status: Acute Category: Medical Code(s): R79.89 - Other specified abnormal findings of blood chemistry (3) Opioid use disorder in remission: Status: Acute Category: Medical Code(s): F11.91 - Opioid use, unspecified, in remission (4) Generalized anxiety disorder with panic attacks: Status: Acute Category: Medical Code(s): F41.1 - Generalized anxiety disorder; F41.0 - Panic disorder [episodic paroxysmal anxiety] (5) HLD (hyperlipidemia): Status: Acute Category: Medical Code(s): E78.5 - Hyperlipidemia, unspecified (6) Weakness: Status: Acute Category: Medical Code(s): R53.1 - Weakness (7) Dehydration: Status: Acute Category: Medical Code(s): E86.0 - Dehydration (8) Leukocytosis: Status: Acute Category: Medical Code(s): D72.829 - Elevated white blood cell count, unspecified Plan 50-year-old male who presents with weakness in his hands. Found to be in DKA with glucose of 829, anion gap of 36. Initiated on DKA protocol. Medicine consulted for admission. Discussed case with ER provider, request admission for insulin drip and IV fluids per protocol. I agreed to admit to the ICU for further care. Monitoring closely with labs every 4 hours to monitor electrolytes, kidney function, sodium replacement. Fingersticks every 2 hours. High risk for decompensation. No overt signs of infection as etiology for DKA. States he is only on metformin at home. Concern for poor compliance. Does complain of polyuria and polydipsia with nocturia over the past several weeks. Doing better on DKA drip overnight. Gap closing this morning. Endocrine consulted to evaluate patient today. Problems addressed as follows: DKA Pseudohyponatremia Hypochloremia - A1c 13. Gap improving. 16 this morning. Will transition off insulin drip when gap closes. - Phosphorus 2.3 this morning, decreased to 1.8. Will replace with 2 IV runs. Repeat phosphorus ordered for the morning. - Endocrine consulted to evaluate today. Discussed case, recommend initiating 24 units basal insulin this morning. 6 units with meals once gap closed and then transition off To sliding scale in addition to previously mentioned doses. - potassium 4.4, magnesium 2.1. - Repeat CBC, CMP, magnesium ordered for the morning - TSH 0.21 COVID-19 infection - Leukocytosis remains elevated at 15.8. Given patient's positive COVID test, suspect this is the culprit. Will continue ceftriaxone 1 g daily however for at least 48 hours pending urine and blood cultures. Did have a single blood culture positive for staph, suspect contaminant. - Stable on room air, goal sats greater 90%. Will initiate oxygen if needed. Hypertension: Blood pressure stable today with systolics 110s, consider resuming ARB therapy when appropriate Opiate use disorder in remission. Continue Suboxone 2 tabs daily Obesity complicates all aspects of his care full code diabetic diet lovenox 40mg subcu daily
[2025-08-14 13:00] LABS: Magnesium 1.8 mg/dl (1.6-2.3)
[2025-08-14 13:04] LABS: Acinetobacter calcoaceticus-ba Not Detected; Bacteroides fragilis Not Detected; Candida auris Not Detected; Candida glabrata Not Detected; Enterobacterales Not Detected; Enterococcus faecalis Not Detected; Enterococcus faecium Not Detected; Klebsiella aerogenes Not Detected; Klebsiella pneumoniae grp Not Detected; Proteus spp. Not Detected; Salmonella spp. Not Detected; Serratia marcescens Not Detected; Staphylococcus epidermidis Not Detected; Staphylococcus lugdunensis Not Detected; Staphylococcus spp. Detected; Stenotrophomonas maltophilia Not Detected; Streptococcus agalactiae(GrpB) Not Detected; Streptococcus pyogenes Group A Not Detected; Streptococcus spp. Not Detected
[2025-08-14 13:05] LABS: Phosphorous 1.5 mg/dl (2.5-4.5)
--- NOTE | 2025-08-14 13:08 | PC.NURSE ---
Insulin drip stopped at this time. notified. Continuation of care plan.
[2025-08-14] MEDS: NYSTATIN SUSP 500,000 UNITS/5ML UDC 500000 UNIT PO ×3 (13:09→20:06)
[2025-08-14] MEDS: POTASSIUM PHOS IN 0.9 % NACL 15 MMOL/250 ML PIGGYBACK 62.5 MMOL IV ×2 (13:32→17:28)
[2025-08-14 13:33] LABS: POC Glucose,Bedside 212 gm/dL (70-110)
[2025-08-14 14:33] LABS: POC Glucose,Bedside 250 gm/dL (70-110)
[2025-08-14 16:23] LABS: POC Glucose,Bedside 230 gm/dL (70-110)
[2025-08-14 19:55] LABS: POC Glucose,Bedside 275 gm/dL (70-110)
[2025-08-15] VITALS (10 sets, daily range): BP systolic 94–131; BP diastolic 65–83; PULSE 79–102; RESP 8–12; TEMP 36.7–37.1; O2SAT 96–98; BMI 35.8
[2025-08-15 05:59] LABS: Hematocrit 38.3 % (42.0-52.0); Hemoglobin 13.0 g/dL (14.1-18.0); Immature Granulocytes % 0.4 %; Mean Corpuscular HGB Conc 33.9 g/dL (31.8-35.4); Mean Corpuscular Hemoglobin 29.8 pg (27.0-31.2); Mean Corpuscular Volume 87.8 fl (80-94); Nucleated Red Blood Cells % 0 %; Platelet Count 212 K/mm3 (142-424); Red Blood Count 4.36 M/mm3 (4.60-6.20); Red Cell Distribution Width-SD 42.3 fL; White Blood Count 12.7 K/mm3 (4.8-10.8)
[2025-08-15 06:14] LABS: Albumin Level 3.7 g/dl (3.5-5.0); Chloride 99 mmol/L (98-107)
[2025-08-15 06:15] LABS: Potassium 4.3 mmoL/L (3.5-5.1); Sodium 133 mmol/L (136-145)
[2025-08-15 06:17] LABS: Alanine Aminotransferase 17 U/L (12-78); Albumin/Globulin Ratio 1.2 (1.1-1.8); Anion Gap 19.3 mEq/L (5-15); Aspartate Amino Transferase 21 U/L (17-59); Blood Urea Nitrogen 9 mg/dl (9-20); Carbon Dioxide 19 mmol/L (22.0-30.0); Creatinine Clearance Estimated 221 mL/min (50-200); Creatinine,Serum 0.60 mg/dl (0.66-1.25); Estimated Glomerular Filt Rate 142 ml/min (>60); GFR (African American) 172 ML/MIN (>60); Globulin 3.0 g/dL (1.3-3.2); Total Protein,Serum 6.7 g/dl (6.3-8.2)
[2025-08-15 06:18] LABS: Alkaline Phosphatase 100 U/L (38-126); Bilirubin,Total 0.6 mg/dl (0.2-1.3); Calcium 8.4 mg/dl (8.4-10.2); Glucose 266 mg/dl (74-100); Magnesium 1.8 mg/dl (1.6-2.3)
[2025-08-15 06:22] LABS: POC Glucose,Bedside 263 gm/dL (70-110)
[2025-08-15] MEDS: humaLOG 100 UNITS/ML 10ML VIAL (SSI) 6 UNIT SUBCUT (06:35)
[2025-08-15] MEDS: humaLOG 100 UNITS/ML 10ML VIAL (SSI) SUBCUT ×2 (06:35→11:48)
[2025-08-15 06:56] LABS: Phosphorous 2.2 mg/dl (2.5-4.5)
[2025-08-15] MEDS: INSULIN GLARGINE 100 UNITS/ML 3ML FLEXPEN 24 UNIT SUBCUT (08:11)
[2025-08-15] MEDS: BUPRENORPHINE/NALOXONE 8MG/2MG ODT 2 EACH SL (08:12)
[2025-08-15] MEDS: NYSTATIN SUSP 500,000 UNITS/5ML UDC 500000 UNIT PO ×2 (08:12→12:24)
--- NOTE | 2025-08-15 08:50 | EXP.PN ---
Subjective *Date: 08/15/25 *Time: 09:59 Interval history: AM BG 263. No overnight events, he mentioned that he is overall feeling better. He reports trouble swallowing due to trush. Exam Data for Last 24 hours Vital signs and Labs for Last 24 Hours: Temp Pulse Resp BP Pulse Ox O2 Del Method 98.5 F 80 8 L 121/79 97 Room Air 08/14/25 20:00 08/15/25 04:00 08/15/25 04:00 08/15/25 04:00 08/15/25 04:00 08/15/25 08:27 Laboratory Results - last 24 hr 08/13/25 15:15: A. baumannii (PCR) Not detected, Bacteroides fragilis Not detected, [place] albicans (PCR) Not detected, [place] auris (PCR) Not detected, C. glabrata (PCR) Not detected, C. krusei (PCR) Not detected, C. parapsilosis (PCR) Not detected, C. tropicalis (PCR) Not detected, Cryptococcus neoformans PCR Not detected, Enterobacterales (PCR) Not detected, Enterococc faecalis PCR Not detected, Enterococc faecium PCR Not detected, E. coli (PCR) Not detected, H. influenzae DNA Not detected, Klebsiella aerogenes (PCR) Not detected, Klebsiella oxytoca PCR Not detected, K. pneumoniae group (PCR) Not detected, List. monocytogenes PCR Not detected, N. meningitidis (PCR) Not detected, Proteus species (PCR) Not detected, Salmonella spp. (PCR) Not detected, Serratia marcescens PCR Not detected, Staphylococcus sp PCR Detected A, Staph aureus (PCR) Not detected, mecA/C & MREJ Resist Gene Not applicable, mecA/C-Methicil Resis Gene Not applicable, Staph epidermidis (PCR) Not detected, Staph lugdunensis (TEM-PCR) Not detected, S. maltophilia (PCR) Not detected, Streptococcus sp PCR Not detected, S.agalactiae Grp B [place] Not detected, Strep pneumoniae (PCR) Not detected, S. pyogenes GrpA [place] Not detected, P. aeruginosa (PCR) Not detected, Bear/B-Vanco Res Genes Not applicable, blaIMP Car res Gene PCR Not applicable, KPC-Carbap Res Gene PCR Not applicable, blaNDM Car Res Gene PCR Not applicable, OXA-48 Carbapenem Resis Gene (PCR) Not applicable, blaVIM Car Res Gene PCR Not applicable, CTX-M Gene Resistance (PCR) Not applicable, MCR-1 Resistance Gene Not applicable 08/14/25 05:11: Free T4 1.44 08/14/25 08:48: Sodium 136, Potassium 4.6, Chloride 101, Carbon Dioxide 24, Anion Gap 15.6 H, BUN 18, Creatinine 0.70, Estimated Creat Clear 189, Estimated GFR 119, Est GFR ( Amer) 144, Glucose 248 H D, Calcium 8.6, Phosphorus 1.9 L, Magnesium 1.9 08/14/25 09:02: POC Glucose 250 H 08/14/25 10:11: POC Glucose 247 H 08/14/25 10:56: POC Glucose 261 H 08/14/25 11:58: POC Glucose 252 H 08/14/25 12:30: Phosphorus 1.5 L, Magnesium 1.8 08/14/25 13:02: POC Glucose 212 H 08/14/25 14:25: POC Glucose 250 H 08/14/25 16:13: POC Glucose 230 H 08/14/25 19:46: POC Glucose 275 H 08/15/25 05:44: WBC 12.7 H, RBC 4.36 L, Hgb 13.0 L, Hct 38.3 L, MCV 87.8, MCH 29.8, MCHC 33.9, RDW 13.1, Plt Count 212, MPV 11.5 H, Neut % (Auto) 56.4, Lymph % (Auto) 32.0, [place] % (Auto) 7.1, Eos % (Auto) 3.6, Baso % (Auto) 0.5, Neut # (Auto) 7.2, Lymph # (Auto) 4.1, [place] # (Auto) 0.9, Eos # (Auto) 0.5 H, Baso # (Auto) 0.1, Sodium 133 L, Potassium 4.3, Chloride 99, Carbon Dioxide 19 L, Anion Gap 19.3 H, BUN 9 D, Creatinine 0.60 L, Estimated Creat Clear 221, Estimated GFR 142, Est GFR ( Amer) 172, Glucose 266 H, Calcium 8.4, Phosphorus 2.2 L D, Magnesium 1.8, Total Bilirubin 0.6, AST 21, ALT 17 D, Alkaline Phosphatase 100, Total Protein 6.7, Albumin 3.7, Globulin 3.0, Albumin/Globulin Ratio 1.2 08/15/25 06:10: POC Glucose 263 H I & O for Last 24 hours: Intake & Output 08/12/25 08/13/25 08/14/25 08/15/25 23:59 23:59 23:59 23:59 Intake Total 3325.35 / 3325.35 3820.887 / 3820.887 240 / 240 Output Total 500 / 1100 2300 / 2300 1250 / 1250 Balance 2825.35 / 2225.35 1520.887 / 1520.887 -1010 / -1010 Weight 234 lb 2 oz 236 lb 1.841 oz 236 lb 6.074 oz Microbiology Reports for the Last 24 Hours: Microbiology 08/13/25 15:15 Blood Blood Culture - Preliminary Gram Positive Cocci 08/13/25 15:22 Blood Blood Culture - Preliminary NO GROWTH AFTER 24 HOURS Constitutional Constitutional: no acute distress, morbidly obese and obese *Routine HEENT Exam Head: Present normocephalic and atraumatic Eye: Present EOMI *Routine Neck Exam Neck: Present full ROM *Routine Respiratory Exam Respiratory: Present normal respiratory effort *Routine Cardiovascular Exam Cardiovascular: Present Normal S1, Normal S2 and murmur *Routine Abdominal Exam Abdominal: Present soft and distended; Absent tenderness *Routine Extremities Exam Extremities: Present edema and full ROM Assessment and Plan *Assessment and plan (1) DKA (diabetic ketoacidosis): Status: Acute Qualifiers: Diabetes mellitus type: type 2 Category: Medical Code(s): E11.10 - Type 2 diabetes mellitus with ketoacidosis without coma (2) Diabetes: Status: Acute Qualifiers: Diabetes mellitus complication status: without complication 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 Plan to monitor levels for now. Follow up outpatient in 4-6 weeks with repeat labs. Plan - Poorly controlled diabetes due to poor follow up and poor adherence. - DKA resolved - Currently on basal/bolus regimen. Off insulin gtt - His insulin requirements on insulin gtt ~ 60u/24hr - Educated patient on how to check BG regularly and on how to dose insulin after discharge. Basal: Increase to 28 units Glargine Bolus: increase to 8 units lispro w/ meals TID Correction: 1:50 for BG>150 along with meals. Discharge plan: - Insulin regimen: Glargine 28 units and Lispro 8 units w/ meals - (preferably insulin pens) - Continue Metformin 500mg BID, hold Ozempic - Ensure patient has supplies for blood glucose monitoring (Meter, test strips, lancets, and alcohol swabs) - Follow up in 2 weeks outpatient.
--- NOTE | 2025-08-15 10:07 | DIET.NUTRFU ---
RD consulted for diabetic education- multiple handouts provided and reviewed. Will also provide contact information for follow-up as outpatient is needed
[2025-08-15] MEDS: humaLOG 100 UNITS/ML 10ML VIAL (SSI) 8 UNIT SUBCUT (11:48)
--- NOTE | 2025-08-15 12:04 | PC.NURSE ---
teaching re-enforced for insulin administration done at this time
--- NOTE | 2025-08-15 12:32 | P.DS_ITS ---
General Admission date:: 08/13/25 Discharge date: 08/15/25 HPI HPI HPI: Mr. Ferguson is a 50-year-old male with history of diabetes mellitus type II, HLD, HTN, obesity, and h/o opioid use currently in remission. He reported of blurry vision, weakness, unable to hold things at presentation. He was diagnosed with DKA. He mentioned that he was diagnosed with diabetes over a year ago and has been on Metformin. He was recently evaluated by PCP and was prescribed ozempic. But he never started it as he was concerned of it's side effects. He has been having increased urinary frequency, nocturia, polydipsia. Recent hba1c : 13.6% from Aug 2025 The following diabetes history was provided: -DM type:Type II ; Diagnosed Dec 2023 -DM home medications: Metformin 500mg BID -Medication compliance: Fair, misses doses of Metformin -Monitoring: None -Hx of DKA: Currently admitted with DKA -Complications: Not evaluated -Steroids: None Provider managing diabetes: PCP, patient was last seen by PCP in Jun. He was adv ised to test for hba1c and start Ozempic. However, patient did not follow up for labs and did not start his medication. Insulin Total Daily Dose- Insulin Gtt ~2.5u/hr Exam Data for Last 24 hours Vital signs and Labs for Last 24 Hours: Temp Pulse Resp BP Pulse Ox O2 Del Method 98.7 F 98 H 8 L 109/83 L 97 Room Air 08/15/25 12:10 08/15/25 12:10 08/15/25 08:00 08/15/25 12:10 08/15/25 12:10 08/15/25 12:10 Laboratory Results - last 24 hr 08/13/25 15:15: A. baumannii (PCR) Not detected, Bacteroides fragilis Not detected, [place] albicans (PCR) Not detected, [place] auris (PCR) Not detected, C. glabrata (PCR) Not detected, C. krusei (PCR) Not detected, C. parapsilosis (PCR) Not detected, C. tropicalis (PCR) Not detected, Cryptococcus neoformans PCR Not detected, Enterobacterales (PCR) Not detected, Enterococc faecalis PCR Not detected, Enterococc faecium PCR Not detected, E. coli (PCR) Not detected, H. influenzae DNA Not detected, Klebsiella aerogenes (PCR) Not detected, Klebsiella oxytoca PCR Not detected, K. pneumoniae group (PCR) Not detected, List. monocytogenes PCR Not detected, N. meningitidis (PCR) Not detected, Proteus species (PCR) Not detected, Salmonella spp. (PCR) Not detected, Serratia marcescens PCR Not detected, Staphylococcus sp PCR Detected A, Staph aureus (PCR) Not detected, mecA/C & MREJ Resist Gene Not applicable, mecA/C-Methicil Resis Gene Not applicable, Staph epidermidis (PCR) Not detected, Staph lugdunensis (TEM-PCR) Not detected, S. maltophilia (PCR) Not detected, Streptococcus sp PCR Not detected, S.agalactiae Grp B KELTON Not detected, Strep pneumoniae (PCR) Not detected, S. pyogenes GrpA KELTON Not detected, P. aeruginosa (PCR) Not detected, Bear/B-Vanco Res Genes Not applicable, blaIMP Car res Gene PCR Not applicable, KPC-Carbap Res Gene PCR Not applicable, blaNDM Car Res Gene PCR Not applicable, OXA-48 Carbapenem Resis Gene (PCR) Not applicable, blaVIM Car Res Gene PCR Not applicable, CTX-M Gene Resistance (PCR) Not applicable, MCR-1 Resistance Gene Not applicable 08/14/25 12:30: Phosphorus 1.5 L, Magnesium 1.8 08/14/25 13:02: POC Glucose 212 H 08/14/25 14:25: POC Glucose 250 H 08/14/25 16:13: POC Glucose 230 H 08/14/25 19:46: POC Glucose 275 H 08/15/25 05:44: WBC 12.7 H, RBC 4.36 L, Hgb 13.0 L, Hct 38.3 L, MCV 87.8, MCH 29.8, MCHC 33.9, RDW 13.1, Plt Count 212, MPV 11.5 H, Neut % (Auto) 56.4, Lymph % (Auto) 32.0, Warren % (Auto) 7.1, Eos % (Auto) 3.6, Baso % (Auto) 0.5, Neut # (Auto) 7.2, Lymph # (Auto) 4.1, Warren # (Auto) 0.9, Eos # (Auto) 0.5 H, Baso # (Auto) 0.1, Sodium 133 L, Potassium 4.3, Chloride 99, Carbon Dioxide 19 L, Anion Gap 19.3 H, BUN 9 D, Creatinine 0.60 L, Estimated Creat Clear 221, Estimated GFR 142, Est GFR ( Amer) 172, Glucose 266 H, Calcium 8.4, Phosphorus 2.2 L D, Magnesium 1.8, Total Bilirubin 0.6, AST 21, ALT 17 D, Alkaline Phosphatase 100, Total Protein 6.7, Albumin 3.7, Globulin 3.0, Albumin/Globulin Ratio 1.2 08/15/25 06:10: POC Glucose 263 H I & O for Last 24 hours: Intake & Output 08/12/25 08/13/25 08/14/25 08/15/25 23:59 23:59 23:59 23:59 Intake Total 3325.35 / 3325.35 3820.887 / 3820.887 240 / 240 Output Total 500 / 1100 2300 / 2300 1550 / 1550 Balance 2825.35 / 2225.35 1520.887 / 1520.887 -1310 / -1310 Weight 106.197 kg 107.1 kg 107.22 kg Microbiology Reports for the Last 24 Hours: Microbiology 08/13/25 15:15 Blood Blood Culture - Preliminary Gram Positive Cocci 08/13/25 15:22 Blood Blood Culture - Preliminary NO GROWTH AFTER 24 HOURS Results Data Completed and Pending Labs on day of discharge: Labs from last 24 hours 08/15/25 08/15/25 08/14/25 06:10 05:44 19:46 WBC 12.7 H RBC 4.36 L Hgb 13.0 L Hct 38.3 L MCV 87.8 MCH 29.8 MCHC 33.9 RDW 13.1 Plt Count 212 MPV 11.5 H Neut % (Auto) 56.4 Lymph % (Auto) 32.0 Warren % (Auto) 7.1 Eos % (Auto) 3.6 Baso % (Auto) 0.5 Neut # (Auto) 7.2 Lymph # (Auto) 4.1 Warren # (Auto) 0.9 Eos # (Auto) 0.5 H Baso # (Auto) 0.1 Sodium 133 L Potassium 4.3 Chloride 99 Carbon Dioxide 19 L Anion Gap 19.3 H BUN 9 D Creatinine 0.60 L Estimated Creat Clear 221 Estimated GFR 142 Est GFR ( Amer) 172 Glucose 266 H POC Glucose 263 H 275 H Calcium 8.4 Phosphorus 2.2 L D Magnesium 1.8 Total Bilirubin 0.6 AST 21 ALT 17 D Alkaline Phosphatase 100 Total Protein 6.7 Albumin 3.7 Globulin 3.0 Albumin/Globulin Ratio 1.2 A. baumannii (PCR) Bacteroides fragilis [place] albicans (PCR) [place] auris (PCR) C. glabrata (PCR) C. krusei (PCR) C. parapsilosis (PCR) C. tropicalis (PCR) Cryptococcus neoformans PCR Enterobacterales (PCR) Enterococc faecalis PCR Enterococc faecium PCR E. coli (PCR) H. influenzae DNA Klebsiella aerogenes (PCR) Klebsiella oxytoca PCR K. pneumoniae group (PCR) List. monocytogenes PCR N. meningitidis (PCR) Proteus species (PCR) Salmonella spp. (PCR) Serratia marcescens PCR Staphylococcus sp PCR Staph aureus (PCR) mecA/C & MREJ Resist Gene mecA/C-Methicil Resis Gene Staph epidermidis (PCR) Staph lugdunensis (TEM-PCR) S. maltophilia (PCR) Streptococcus sp PCR S.agalactiae Grp B KELTON Strep pneumoniae (PCR) S. pyogenes GrpA KELTON P. aeruginosa (PCR) eBar/B-Vanco Res Genes blaIMP Car res Gene PCR KPC-Carbap Res Gene PCR blaNDM Car Res Gene PCR OXA-48 Carbapenem Resis Gene (PCR) blaVIM Car Res Gene PCR CTX-M Gene Resistance (PCR) MCR-1 Resistance Gene 08/14/25 08/14/25 08/14/25 16:13 14:25 13:02 WBC RBC Hgb Hct MCV MCH MCHC RDW Plt Count MPV Neut % (Auto) Lymph % (Auto) Warren % (Auto) Eos % (Auto) Baso % (Auto) Neut # (Auto) Lymph # (Auto) Warren # (Auto) Eos # (Auto) Baso # (Auto) Sodium Potassium Chloride Carbon Dioxide Anion Gap BUN Creatinine Estimated Creat Clear Estimated GFR Est GFR ( Amer) Glucose POC Glucose 230 H 250 H 212 H Calcium Phosphorus Magnesium Total Bilirubin AST ALT Alkaline Phosphatase Total Protein Albumin Globulin Albumin/Globulin Ratio A. baumannii (PCR) Bacteroides fragilis [place] albicans (PCR) [place] auris (PCR) C. glabrata (PCR) C. krusei (PCR) C. parapsilosis (PCR) C. tropicalis (PCR) Cryptococcus neoformans PCR Enterobacterales (PCR) Enterococc faecalis PCR Enterococc faecium PCR E. coli (PCR) H. influenzae DNA Klebsiella aerogenes (PCR) Klebsiella oxytoca PCR K. pneumoniae group (PCR) List. monocytogenes PCR N. meningitidis (PCR) Proteus species (PCR) Salmonella spp. (PCR) Serratia marcescens PCR Staphylococcus sp PCR Staph aureus (PCR) mecA/C & MREJ Resist Gene mecA/C-Methicil Resis Gene Staph epidermidis (PCR) Staph lugdunensis (TEM-PCR) S. maltophilia (PCR) Streptococcus sp PCR S.agalactiae Grp B KELTON Strep pneumoniae (PCR) S. pyogenes GrpA KELTON P. aeruginosa (PCR) Bear/B-Vanco Res Genes blaIMP Car res Gene PCR KPC-Carbap Res Gene PCR blaNDM Car Res Gene PCR OXA-48 Carbapenem Resis Gene (PCR) blaVIM Car Res Gene PCR CTX-M Gene Resistance (PCR) MCR-1 Resistance Gene 08/14/25 08/13/25 12:30 15:15 WBC RBC Hgb Hct MCV MCH MCHC RDW Plt Count MPV Neut % (Auto) Lymph % (Auto) Warren % (Auto) Eos % (Auto) Baso % (Auto) Neut # (Auto) Lymph # (Auto) Warren # (Auto) Eos # (Auto) Baso # (Auto) Sodium Potassium Chloride Carbon Dioxide Anion Gap BUN Creatinine Estimated Creat Clear Estimated GFR Est GFR ( Amer) Glucose POC Glucose Calcium Phosphorus 1.5 L Magnesium 1.8 Total Bilirubin AST ALT Alkaline Phosphatase Total Protein Albumin Globulin Albumin/Globulin Ratio A. baumannii (PCR) Not detected Bacteroides fragilis Not detected [place] albicans (PCR) Not detected [place] auris (PCR) Not detected C. glabrata (PCR) Not detected C. krusei (PCR) Not detected C. parapsilosis (PCR) Not detected C. tropicalis (PCR) Not detected Cryptococcus neoformans PCR Not detected Enterobacterales (PCR) Not detected Enterococc faecalis PCR Not detected Enterococc faecium PCR Not detected E. coli (PCR) Not detected H. influenzae DNA Not detected Klebsiella aerogenes (PCR) Not detected Klebsiella oxytoca PCR Not detected K. pneumoniae group (PCR) Not detected List. monocytogenes PCR Not detected N. meningitidis (PCR) Not detected Proteus species (PCR) Not detected Salmonella spp. (PCR) Not detected Serratia marcescens PCR Not detected Staphylococcus sp PCR Detected A Staph aureus (PCR) Not detected mecA/C & MREJ Resist Gene Not applicable mecA/C-Methicil Resis Gene Not applicable Staph epidermidis (PCR) Not detected Staph lugdunensis (TEM-PCR) Not detected S. maltophilia (PCR) Not detected Streptococcus sp PCR Not detected S.agalactiae Grp B KELTON Not detected Strep pneumoniae (PCR) Not detected S. pyogenes GrpA KELTON Not detected P. aeruginosa (PCR) Not detected Bear/B-Vanco Res Genes Not applicable blaIMP Car res Gene PCR Not applicable KPC-Carbap Res Gene PCR Not applicable blaNDM Car Res Gene PCR Not applicable OXA-48 Carbapenem Resis Gene (PCR) Not applicable blaVIM Car Res Gene PCR Not applicable CTX-M Gene Resistance (PCR) Not applicable MCR-1 Resistance Gene Not applicable Preliminary micro results at discharge 08/13/25 15:15 Blood Culture - Preliminary Blood Gram Positive Cocci 08/13/25 15:22 Blood Culture - Preliminary Blood NO GROWTH AFTER 24 HOURS DS: Diagnosis Discharge Diagnosis (1) DKA (diabetic ketoacidosis): Status: Acute Code(s): E11.10 - Type 2 diabetes mellitus with ketoacidosis without coma Qualifiers: Diabetes mellitus type: type 2 (2) Diabetes: Status: Acute Code(s): E11.9 - Type 2 diabetes mellitus without complications Qualifiers: Diabetes mellitus complication status: without complication Diabetes mellitus half-way insulin use: without superintendent [employer] use Diabetes mellitus type: type 2 Qualified Code(s): E11.9 - Type 2 diabetes mellitus without complications (3) Abnormal thyroid blood test: Status: Acute Code(s): R79.89 - Other specified abnormal findings of blood chemistry Problem details: Subclinical hyperthyroidism Meds Home Medications and Allergies Home Medications ?Medication ?Instructions ?Recorded ?Confirmed ?Type buprenorphine 8 mg-naloxone 2 mg 2 tab sublingual ADOLFO Y 12/10/23 08/13/25 History sublingual tablet aspirin 81 mg tablet,delayed 81 mg PO DAILY 12/11/23 1 History release (Adult Low Dose Aspirin) atorvastatin 20 mg tablet (Lipitor) 20 mg PO DAILY #90 tabs 06/28/25 08/13/25 Rx losartan 50 mg-hydrochlorothiazide 1 tab PO DAILY #30 tabs 06/28/25 08/13/25 Rx 12.5 mg tablet Held on 08/15/25. Instructions: pending follow-up with PCP alprazolam 1 mg tablet 1 mg PO BID PRN anxiety #60 tabs 08/07/25 08/13/25 Rx metformin 500 mg tablet 500 mg PO BID 08/14/2508/14 History insulin glargine 100 unit/mL (3 28 unit (0.28 mL) SQ D AILY 30 days 08/15/25 Rx mL) subcutaneous pen (Lantus #15 mL Solostar U-100 Insulin) insulin lispro 100 unit/mL 8 unit (0.08 mL) SQ TID 30 days 08/15/25 Rx subcutaneous pen (Humalog KwikPen #15 mL (U-100) Insulin) nystatin 100,000 unit/mL oral 500,000 unit (5 mL) PO Q ID 8 days 08/15/25 Rx suspension #150 mL pen needle, diabetic 30 gauge x #1,200 ea 08/15/25 Rx 01/14 New Prescriptions to Start Prescriptions: insulin glargine [Lantus Solostar U-100 Insulin] Pascual Adam insulin lispro [Humalog KwikPen Insulin] Pascual Adam, diabetic Pascual Adam Allergies Allergy/AdvReac Type Severity Reaction Status Date / Time Penicillins (PENICILLINS) Allergy Mild Unknown Verified 08/01/25 10:54 allergy reaction levofloxacin (From LEVAQUIN) Allergy Unknown Unknown Verified 08/01/25 10:54 allergy reaction Discharge Plan Disposition Patient Disposition: Home, Self-Care Condition: Fair Discharge Order Discharge Orders: Discharge Order (Routine); Ordered 08/15/25 Ordered By: Pascual Adam Follow up Plan Follow up with: Addison Thomas DO [Primary Care Provider, Family Practice] - Enter time for follow up Pascale Red MD [Staff Physician, Endocrinology] - Enter time for follow up Prescriptions/Medication Reconciliation: New insulin glargine [Lantus Solostar U-100 Insulin] 100 unit/mL (3 mL) Insulin Pen 28 unit SQ DAILY 30 Days Qty: 15 0RF (DME) pen needle, diabetic 30 gauge x 3/16 needle See Rx Instructions .ROUTE .MEDSUPPLY Qty: 1200 0RF Rx Instructions: 4 times a day with insulin nystatin 100,000 unit/mL Suspension 500,000 unit PO QID 8 Days Qty: 150 0RF insulin lispro [Humalog KwikPen Insulin] 100 unit/mL insulin pen 8 unit SQ TID 30 Days Qty: 15 0RF Continued buprenorphine-naloxone 8-2 mg tablet, sublingual 2 tab sublingual DAILY aspirin [Adult Low Dose Aspirin] 81 mg tablet,delayed release (DR/EC) 81 mg PO DAILY atorvastatin [Lipitor] 20 mg tablet 20 mg PO DAILY Qty: 90 2RF alprazolam 1 mg tablet 1 mg PO BID PRN (Reason: anxiety) Qty: 60 0RF metformin 500 mg tablet 500 mg PO BID Patient Comments: TAKE ONE TABLET BY MOUTH 2 TIMES A DAY Held losartan-hydrochlorothiazide 50-12.5 mg tablet 1 tab PO DAILY Qty: 30 2RF Hold Instructions: pending follow-up with PCP Problem Reconciliation Problems Reviewed?: Yes Patient Discharge Instructions ACTIVITY: Continue current activity DIET: continue same diet Patient Instructions: Insulin Types, How to Use an Insulin Pen Print Language: Kiswahili Providers Primary Care Provider: Addison Thomas Admit Provider: Pascual Adam Attending Provider: Pascual Adam
[2025-08-15 16:56] LABS: POC Glucose,Bedside 279 gm/dL (70-110)
--- NOTE | 2025-08-17 10:13 | SW/DCPLANNER ---
Phoned patients mother phone x2. Was not able to leave a message each time. Lois Quispe
[2025-08-17 12:16] LABS: POC Glucose,Bedside > 600 gm/dL (70-110)
--- NOTE | 2025-08-18 08:17 | PC.NURSE ---
Blood culture results forwarded to hospitalist.
--- NOTE | 2025-08-20 10:30 | PC.NURSE ---
Final blood culture result forwarded to the hospitalist as he was admitted.
== END 2025-08-15 14:41 | disposition home or self-care (01) | DRG 637 ==
LOC: ER 15:39 → ICU 16:35
PROVIDERS: Student in an Organized Health Care Education/Training Program; Admitting Provider Internal Medicine Adolescent Medicine; Emergency Provider Emergency Medicine; PCP Internal Medicine; Visit Provider Internal Medicine Adolescent Medicine
DX: E11.10 Type 2 diabetes mellitus with ketoacidosis without coma (principal); U07.1 COVID-19; I10 Essential (primary) hypertension; E05.90 Thyrotoxicosis, unspecified without thyrotoxic crisis or storm; E66.9 Obesity, unspecified; F11.11 Opioid abuse, in remission; F41.1 Generalized anxiety disorder; F41.0 Panic disorder [episodic paroxysmal anxiety]; E78.5 Hyperlipidemia, unspecified; E86.0 Dehydration; D72.829 Elevated white blood cell count, unspecified; F17.210 Nicotine dependence, cigarettes, uncomplicated; B37.9 Candidiasis, unspecified; Z91.148 Patient's other noncompliance with medication regimen for other reason; Z68.35 Body mass index [BMI] 35.0-35.9, adult; Z79.4 Long term (current) use of insulin; Z79.84 Long term (current) use of oral hypoglycemic drugs; Z79.82 Long term (current) use of aspirin; Z79.899 Other long term (current) drug therapy; Z88.0 Allergy status to penicillin; Z88.1 Allergy status to other antibiotic agents
CPT/HCPCS: 36415; 70450; 71045; 80048; 80053; 80307; 81001; 82009; 82803; 82962; 83036; 83605; 83690; 83735; 84100; 84439; 84443; 85025; 87040; 87077; 87154; 87636; 93005; 99285; J0574; J0692; J0696; J1650; J2405; J3375; J3480; J7030; J7042